=== PATIENT | male | born 2000 | race Caucasian/White ===

== ENCOUNTER 2020-03-04 15:15 | Outpatient (RCR) | payer BC, SELFPAY ==
[2020-02-26 13:16] VITALS: BP 143/95; PULSE 105; RESP 16; TEMP 36.1; BMI 37.1
--- NOTE | 2020-02-26 16:09 | PCM.WC.HP ---
(1) Traumatic open wound of left lower leg with delayed healing Status: Acute Current Visit: Yes Code(s): S81.802D - Unspecified open wound, left lower leg, subsequent encounter (2) Obesity Status: Acute Current Visit: Yes Code(s): E66.9 - Obesity, unspecified (3) Bipolar disorder Status: Acute Current Visit: Yes Code(s): F31.9 - Bipolar disorder, unspecified History of Present Illness Date of Service: 02/26/20 Chief Complaint: Wound to left lower extremity x4 weeks History of Wound: This is a 19 year old white male who presents to the wound healing center today for a traumatic wound to his left lower extremity. He has a past medical history as listed above. On 01/27/2020 the patient had a traumatic injury to his left hess where he hit it on a industrial dump bucket. He went to the emergency department on the and an x-ray was done at [facility] and was said to be negative. He was placed on both Keflex and Cipro. He states that he finished the ciprofloxacin yesterday. For wound care he has been utilizing iodine and gauze change it daily. He states that the site is not healing. He denies any significant drainage. He denies any significant pain. He denies any other acute concerns. All other systems reviewed and negative with exception of those listed above. Past Medical History Allergies/Adverse Reactions: Allergies No Known Allergies Allergy (Verified 02/26/20 14:06) Home Medications: Ambulatory Orders Medication Instructions Recorded Carbamazepine [Tegretol] 200 mg PO DAILY 02/26/20 Smoking Status: Current every day smoker Tobacco Use: Cigarettes - 1 pack/day Review of Systems Constitutional: Denies: Chills, Fever, Weight Change Eyes: Denies: Pain, Vision Change HEENT: Denies: Difficulty Hearing, Difficulty Swallowing, Sinus Congestion Cardiovascular: Denies: Chest Pain, Palpitations Respiratory: Denies: Cough, Shortness of Breath Gastrointestinal: Denies: Diarrhea, Nausea, Vomiting Genitourinary: Denies: Dysuria, Hematuria Skin: Reports: Wounds Endocrine: Denies: Heat/ Cold Intolerance, Polydipsia, Polyuria Hematologic/ Lymphatic: Denies: Easy Bruising, Easy Bleeding - Physical Exam Vital Signs Temp Pulse Resp BP 97 F L 105 H 16 143/95 H 02/26/20 13:16 02/26/20 13:16 02/26/20 13:16 02/26/20 13:16 General: Alert, Oriented x3, Cooperative, No apparent distress HEENT: Atraumatic Oral: Moist Mucosa Lungs: Clear to auscultation, Normal air movement Cardiovascular: Regular rate, Regular Rhythm, Normal S1, Normal S2 Abdomen: Soft, Non Tender Extremities: No clubbing, No cyanosis, Edema - Generalized bilateral lower extremity edema, Peripheral Pulses Normal Skin: Ulcer/ Wound - see nursing documentation, large amount of slough present, depth greater than 3 cm Wound Measurements and Assessment WC - Nurse 1 - General Ulcer Measurement Start: 02/26/20 13:12 Freq: Status: Active Protocol: Activity Type Activity Date Activity User E-Sign Co-Sign Detail Recorded Client Recorded Date Recorded By Document 02/26/20 13:16 [facility] [id number] 02/26/20 13:34 [facility] 02/26/20 13:16 Wound Center Nurse 1 [Ulcer Assessment] #1- L HESS (POST TRAUMA) -Combined with other wound No -Current Size (cm) - Length 1.4 -Current Size (cm) - Width 1.4 -Current Size (cm) - Depth 0.8 -Total Square Cm 1.96 -Date of Last Picture (Recall this 02/26/20 field) -Photo Taken Yes -Epithelialization None Present -Tunneling No -Undermining/Tunneling No -Circular Undermining No -Exudate Amt Small -Exudate Type Serosanguineous -Wound Margin Distinct, Outline Attached -Granulation Amt Medium (34-66%) -Granulation Quality Red -Slough/Fibrin Yes -Necrosis Amt Medium (34-66%) -Necrotic Tissue Type Adherent Slough -Texture ([place]-wound Skin Appearance) Assessed -Moisture ([place]-wound Skin Appearance Assessed ) -Color ([place]-wound Skin Appearance) Assessed, Erythema -Temperature ([place]-wound Skin No Abnormality Appearance) (Pt Warm) -Tenderness on Palpation ([place]-wound No Skin Appearance) -Ulcer Cleansing Rinsed/ Irrigated with Saline -Foul Odor after Cleansing No -Anesthetic Used 4% Lidocaine Solution [Edema Assessment] -Lower Limb Edema Present Yes -Right Calf (cm) 59.1 -Right Ankle (cm) 31.5 -Point of Measurement (cm from the 58.4 distal point) -Point of measurement (cm from the 32 medial instep) WC - Nurse 2 - General Ulcer CM Notes Start: 02/26/20 13:12 Freq: Status: Active Protocol: Activity Type Activity Date Activity User E-Sign Co-Sign Detail Recorded Client Recorded Date Recorded By Document 02/26/20 13:50 MW [id number] 02/26/20 14:07 MW 02/26/20 13:50 Wound Center Nurse 2 [Procedure/Treatment] #1- L HESS (POST TRAUMA) -Time 13:51 -Correct Patient Yes -Correct Side, Site, Position Yes -Correct Procedure Yes -Procedure Performed Yes -Type of Procedure Incision & Drainage -Clinical Debridement Muscle / Fascia -Tissue Removed Muscle -Post Debridement (cm) - Length 1.8 -Post Debridement (cm) - Width 1.6 -Post Debridement (cm) - Depth 3.2 -Total Square (Post) (cm) 2.88 -Area of Debridement (cm) - Length 1.8 -Area of Debridement (cm) - Width 1.6 -Total Square (Area) (cm) 2.88 -Tunneling No -Undermining/Tunneling No -Circular Undermining No -Wound/Ulcer Outcome Not Healed -Ulcer Cleansing Rinsed/ Irrigated with Saline -Foul Odor after Cleansing No -Bioengineered Tissue No -Bleeding Controlled with Pressure -Offloading No -Debridement - Muscle / Fascia, 1st Yes 20sq cm [See Physician Procedure note for Specifics] Pain Scale: 0-10 Numeric [Pain] -Is Patient Pain Free? Yes - Nurse 3 - General Ulcer D/C NN Start: 02/26/20 13:12 Freq: Status: Active Protocol: Activity Type Activity Date Activity User E-Sign Co-Sign Detail Recorded Client Recorded Date Recorded By Document 02/26/20 14:11 [facility] [id number] 02/26/20 14:12 [facility] 02/26/20 14:11 Wound Care Nurse 3 [Wound Dressing] #1- L HESS (POST TRAUMA) -Ulcer Cleansing Rinsed/ Irrigated with Saline -Foul Odor after Cleansing No -Primary Dressing Applied Aquacel AG Ribbon -Primary Dressing Covered/Secured Dry Gauze, with Secured with Tape -Aquacel AG Ribbon 3 [Compression Applied] Left -Tubular Bandage Double Layer -Size of Tubigrip Used Size F -Size F ($) 1 [Post Procedure Tolerated] -Treatment Response Procedure Tolerated Well Pain Scale: 0-10 Numeric [Pain] -Is Patient Pain Free? Yes WC - Visit Discharge [Visit Discharge Information] -Discharge Condition Stable -Ambulatory Status Ambulatory -Transportation Private Auto -Accompanied by mom Neurological: Neuro grossly intact Psych/Mental Status: Normal Affect, Appropriate, Alert and oriented to time, place, person, mood and affect Debridement Note Post-Debridement Measurements/Treatment WC - Nurse 2 - General Ulcer CM Notes Start: 02/26/20 13:12 Freq: Status: Active Protocol: Activity Type Activity Date Activity User E-Sign Co-Sign Detail Recorded Client Recorded Date Recorded By Document 02/26/20 13:50 MW [id number] 02/26/20 14:07 MW 02/26/20 13:50 Wound Center Nurse 2 #1- L HESS (POST TRAUMA) -Time 13:51 -Correct Patient Yes -Correct Side, Site, Position Yes -Correct Procedure Yes -Procedure Performed Yes -Type of Procedure Incision & Drainage -Clinical Debridement Muscle / Fascia -Tissue Removed Muscle -Post Debridement (cm) - Length 1.8 -Post Debridement (cm) - Width 1.6 -Post Debridement (cm) - Depth 3.2 -Total Square (Post) (cm) 2.88 -Area of Debridement (cm) - Length 1.8 -Area of Debridement (cm) - Width 1.6 -Total Square (Area) (cm) 2.88 -Tunneling No -Undermining/Tunneling No -Circular Undermining No -Wound/Ulcer Outcome Not Healed -Ulcer Cleansing Rinsed/ Irrigated with Saline -Foul Odor after Cleansing No -Bioengineered Tissue No -Bleeding Controlled with Pressure -Offloading No -Debridement - Muscle / Fascia, 1st Yes 20sq cm Pain Scale: 0-10 Numeric Is Patient Pain Free? Yes - Nurse 3 - General Ulcer D/C NN Start: 02/26/20 13:12 Freq: Status: Active Protocol: Activity Type Activity Date Activity User E-Sign Co-Sign Detail Recorded Client Recorded Date Recorded By Document 02/26/20 14:11 [facility] [id number] 02/26/20 14:12 [facility] 02/26/20 14:11 Wound Care Nurse 3 #1- L HESS (POST TRAUMA) -Ulcer Cleansing Rinsed/ Irrigated with Saline -Foul Odor after Cleansing No -Primary Dressing Applied Aquacel AG Ribbon -Primary Dressing Covered/Secured with Dry Gauze, Secured with Tape -Aquacel AG Ribbon 3 Left -Tubular Bandage Double Layer -Size of Tubigrip Used Size F -Size F ($) 1 Treatment Response Procedure Tolerated Well Pain Scale: 0-10 Numeric Is Patient Pain Free? Yes WC - Visit Discharge Discharge Condition Stable Ambulatory Status Ambulatory Transportation Private Auto Accompanied by mom Wound debrided: Wound to left lower extremity Laterality: Left Type of Debridement: Excisional debridement Anesthesia Used: 5% Lidocaine Gel Depth: in the subcutaneous layer, to muscle Percentage of wound debrided: 100 Instrument Used: 5mm curette Tissue Removed: slough and devitalized tissue Severity: Fat Layer Exposed Amount of bleeding with debridement: Mild Bleeding Controlled with: Pressure Patient tolerated procedure well Assessment/Plan Active Problems Traumatic open wound of left lower leg with delayed healing (Acute) Obesity (Acute) Bipolar disorder (Acute) Assessment: see above diagnoses Plan: The patient was seen and examined at the wound center today and was updated on the plan of care. A subcutaneous/muscular debridement was performed today. The patient tolerated the procedure well. The patients wound care will consist of:packing with silvercell rope daily and cover with gauze, due to depth will apply for snap vac. Wound cultures were collected. Baseline bloodwork ordered held, will request [place] records. Vascular studies held. Patient educated on the importance of diet on wound healing and instructed to increase protein and vitamin C intake. Patient verbalized understanding. Given the delayed wound healing greater than 4 weeks now, will apply for an skin substitute as well. Patient will follow up at wound healing center in one week or sooner if needed. This note was generated with [employer] dictation software. It may contain incorrect words, spelling, and punctuation that were not noted in checking the note before signing. Office Visits / Consults: [id number] OV L4 New [id number]: [id number] Charissa musc/fascia 20 sq cm/<
[2020-03-04 15:18] VITALS: BP 142/76; PULSE 100; RESP 16; TEMP 36.9; BMI 37.1
--- NOTE | 2020-03-04 16:40 | RAD_ITS ---
STUDY: X-RAY - LEFT TIBIA AND FIBULA REASON FOR EXAM: Male, 19 years old. Nonhealing ulcer of the left hess. TECHNIQUE: 2 view(s) of the tibia and fibula were obtained. COMPARISON: None. FINDINGS: Normal visualized tibia. Normal visualized fibula. Edema of the soft tissue with skin defect anterior to the hess bone. No radiopaque foreign body. RAD/Tibia & Fibula 2 Views IMPRESSION: No plain film evidence of osteomyelitis or acute osseous abnormality of the left tibia and fibula. Electronically Signed: Jian Frost MD at 8:57 EDT , Service support ,
[2020-03-04 17:12] LABS: Hemoglobin A1c 5.1 % (3.8-5.6)
[2020-03-04 17:21] LABS: Absolute Lymphocyte Count 1.95 X10^3/uL (0.83-4.51); Basophil# 0.03 X10^3/uL; Basophil% 0.3 % (0-1); Eosinophil# 0.25 X10^3/uL; Eosinophils% 2.2 % (0-5); Hematocrit 43.9 % (40-54); Hemoglobin 14.3 g/dL (13.0-16.5); Lymphocyte # 1.95 X10^3/ul (4.0); Lymphocyte % 17.5 % (19-41); Mean Corp Hgb Conc 32.6 g/dL (32-36); Mean Corpuscular Hgb 28.9 pg (27.0-32.0); Mean Corpuscular Volume 88.9 fL (80-94); Mean Platelet Vol. 9.6 fl (6.2-12.0); Monocyte# 0.95 X10^3/uL; Monocyte% 8.5 % (0-10); NRBC Flagged by Analyzer 0 % (0-5); Neutrophil # 7.96 X10^3/uL (2.7-7.7); Neutrophil % 71.2 % (47-70); Platelet Count 343 K/mm3 (150-450); RBC Distribution Width CV 12.6 % (11.6-14.6); RBC Distribution Width SD 41.3 fl (35.1-43.9); Red Blood Count 4.94 M/mm3 (4.6-6.2); White Blood Count 11.2 K/mm3 (4.4-11.0)
[2020-03-04 17:31] LABS: Erythrocyte Sedimentation Rate 49 mm/hr (0-15)
[2020-03-04 17:37] LABS: ALB/GLOB Ratio 0.9 RATIO (0.9-2.4); AST(SGOT) 15 U/L (15-37); Alanine Aminotransfer ALT/SGPT 43 U/L (16-61); Albumin, Serum 3.5 g/dL (3.2-5.0); Alkaline Phosphatase 99 U/L (45-117); Anion Gap 6 (5-15); BUN 12 mg/dL (7-18); Calcium,Total 8.1 mg/dL (8.5-10.1); Chloride 109 mmol/L (98-107); EST Glomerular Filtration Rate 182 mL/min (>60); Est Glom Filt Rate - Afr Amer 221 mL/min (>60); Estimated Creatinine Clearance 241.11 ml/min; Globulin 3.8 g/dL (2.2-4.2); Glucose 85 mg/dL (74-106); Potassium 4.4 mmol/L (3.5-5.1); Prealbumin 15.7 mg/dL (20.0-40.0); Protein, Total 7.3 g/dL (6.4-8.2); Sodium Level 138 mmol/L (136-145)
--- NOTE | 2020-03-07 15:42 | PCM.WC.PN ---
(1) Traumatic open wound of left lower leg with delayed healing Status: Acute Code(s): S81.802D - Unspecified open wound, left lower leg, subsequent encounter (2) Obesity Status: Acute Code(s): E66.9 - Obesity, unspecified (3) Bipolar disorder Status: Chronic Code(s): F31.9 - Bipolar disorder, unspecified Type of Wound Date of Service: 03/04/20 Chief Complaint: Wound to left lower extremity x4 weeks History of Wound: This is a 19 year old white male who presents to the wound healing center today for a traumatic wound to his left lower extremity. He has a past medical history as listed above. On 01/27/2020 the patient had a traumatic injury to his left hess where he hit it on a industrial dump bucket. He went to the emergency department on the and an x-ray was done at [facility] and was said to be negative. He was placed on both Keflex and Cipro. He states that he finished the ciprofloxacin yesterday. For wound care he has been utilizing iodine and gauze change it daily. He states that the site is not healing. He denies any significant drainage. He denies any significant pain. He denies any other acute concerns. All other systems reviewed and negative with exception of those listed above. Progress of Wound: 03/04/2020?patient reports an increase in pain to the wound, most recent cultures were reviewed and negative, he does also note increased surrounding warmth and redness. Given the concern for cellulitis and depth of 6.5 cm will check a x-ray and also treat empirically with Augmentin. Discussed with patient and mother that if any symptoms worsen or he develops any systemic signs of infection such as fever, chills,worsening pain, or body aches that he should go to the emergency department immediately. - Physical Exam Vital Signs Temp Pulse Resp BP 98.4 F 100 16 142/76 H 03/04/20 15:18 03/04/20 15:18 03/04/20 15:18 03/04/20 15:18 General: Alert, Oriented x3, Cooperative, No apparent distress HEENT: Atraumatic Oral: Moist Mucosa Lungs: Clear to auscultation, Normal air movement Cardiovascular: Regular rate Abdomen: Soft, Non Tender Extremities: No clubbing, No cyanosis, Edema - generalized bilateral lower extremity edema, Peripheral Pulses Normal Skin: Ulcer/ Wound - See nursing documentation, site now tunnel at 1:00 by 6.5 cm, large surrounding area of cellulitis present with warmth and erythema. Wound Measurements and Assessment WC - Nurse 1 - General Ulcer Measurement Start: 02/26/20 13:12 Freq: Status: Active Protocol: Activity Type Activity Date Activity User E-Sign Co-Sign Detail Recorded Client Recorded Date Recorded By Document 03/04/20 15:18 BM [id number] 03/04/20 15:27 BMF 03/04/20 15:18 Wound Center Nurse 1 [Ulcer Assessment] #1- L HESS (POST TRAUMA) -Combined with other wound No -Current Size (cm) - Length 1.7 -Current Size (cm) - Width 1.3 -Current Size (cm) - Depth 2.7 -Total Square Cm 2.21 -Photo Taken No -Tunneling Yes -Tunneling Position (O'clock) 11 -Tunneling Distance (cm) 2.5 -Undermining/Tunneling No -Circular Undermining No -Exudate Amt Large -Exudate Type Serosanguineous -Wound Margin Distinct, Outline Attached -Granulation Amt Medium (34-66%) -Granulation Quality Red -Slough/Fibrin Yes -Necrosis Amt Large (67-100%) -Necrotic Tissue Type Adherent Slough -Texture ([place]-wound Skin Appearance) Assessed -Moisture ([place]-wound Skin Appearance Assessed ) -Color ([place]-wound Skin Appearance) Assessed, Erythema -Temperature ([place]-wound Skin No Abnormality Appearance) (Pt Warm) -Tenderness on Palpation ([place]-wound Yes Skin Appearance) -Ulcer Cleansing soapy water -Foul Odor after Cleansing No -Anesthetic Used 5% Lidocaine Gel [Edema Assessment] -Lower Limb Edema Present Yes -Left Calf (cm) 58.5 -Left Ankle (cm) 31 WC - Nurse 2 - General Ulcer CM Notes Start: 02/26/20 13:12 Freq: Status: Active Protocol: Activity Type Activity Date Activity User E-Sign Co-Sign Detail Recorded Client Recorded Date Recorded By Document 03/04/20 16:14 MW [id number] 03/04/20 16:18 MW 03/04/20 16:14 Wound Center Nurse 2 [Procedure/Treatment] #1- L HESS (POST TRAUMA) -Time 16:15 -Correct Patient Yes -Correct Side, Site, Position Yes -Correct Procedure Yes -Procedure Performed Yes -Type of Procedure Debridement -Clinical Debridement Subcutaneous -Tissue Removed Subcutaneous -Post Debridement (cm) - Length 2.0 -Post Debridement (cm) - Width 1.8 -Post Debridement (cm) - Depth 3.5 -Total Square (Post) (cm) 3.60 -Area of Debridement (cm) - Length 2.0 -Area of Debridement (cm) - Width 1.8 -Total Square (Area) (cm) 3.60 -Tunneling Yes -Tunneling Position (O'clock) 1 -Tunneling Distance (cm) 6.5 -Undermining/Tunneling No -Circular Undermining No -Wound/Ulcer Outcome Not Healed -Ulcer Cleansing Rinsed/ Irrigated with Saline -Foul Odor after Cleansing No -Bioengineered Tissue No -Bleeding Controlled with Pressure -Offloading No -Debridement - Subq, 1st 20sq cm Yes [See Physician Procedure note for Specifics] Pain Scale: 0-10 Numeric [Pain] -Is Patient Pain Free? Yes WC - Nurse 3 - General Ulcer D/C NN Start: 02/26/20 13:12 Freq: Status: Active Protocol: Activity Type Activity Date Activity User E-Sign Co-Sign Detail Recorded Client Recorded Date Recorded By Document 03/04/20 16:20 MW [id number] 03/04/20 16:24 MW 03/04/20 16:20 Wound Care Nurse 3 [Wound Dressing] #1- L HESS (POST TRAUMA) -Ulcer Cleansing Rinsed/ Irrigated with Saline -Foul Odor after Cleansing No -Negative Pressure Wound Therapy N/A -Primary Dressing Applied Aquacel AG 4x4 -Primary Dressing Covered/Secured Dry Gauze & with Roll Gauze, Secured with Tape -Aquacel AG 4x4 1 [Compression Applied] Left -Lotion applied to leg before No compression wrap -Tubular Bandage Double Layer -Size of Tubigrip Used Size F -Size F ($) 2 -Stockings Yes [Post Procedure Tolerated] -Treatment Response Procedure Tolerated Well Pain Scale: 0-10 Numeric [Pain] -Is Patient Pain Free? Yes Teaching: Wound Center [Wound Center Education] (Items with an * have Printed Materials Available- Please identify what is given to patient under the Teaching materials given to patient and caregiver Section. Dressing Your Wound -Person Taught Patient -Teaching Method Discussion -Response to teaching Verbalize understanding WC - Visit Discharge [Visit Discharge Information] -Discharge Condition Stable -Ambulatory Status Ambulatory -Transportation Private Auto -Accompanied by mom -Medication Reconcilliation completed No & provided to patient/care provider -Clinical Summary of Care Provided Yes Neurological: Neuro grossly intact Psych/Mental Status: Normal Affect, Appropriate, Alert and oriented to time, place, person, mood and affect Debridement Note Post-Debridement Measurements/Treatment - Nurse 2 - General Ulcer CM Notes Start: 02/26/20 13:12 Freq: Status: Active Protocol: Activity Type Activity Date Activity User E-Sign Co-Sign Detail Recorded Client Recorded Date Recorded By Document 02/26/20 13:50 MW [id number] 02/26/20 14:07 MW Document 03/04/20 16:14 MW [id number] 03/04/20 16:18 MW 02/26/20 03/04/20 13:50 16:14 Wound Center Nurse 2 #1- L JAMES (POST TRAUMA) -Time 13:51 16:15 -Correct Patient Yes Yes -Correct Side, Site, Position Yes Yes -Correct Procedure Yes Yes -Procedure Performed Yes Yes -Type of Procedure Incision & Debridement Drainage -Clinical Debridement Muscle / Fascia Subcutaneous -Tissue Removed Muscle Subcutaneous -Post Debridement (cm) - Length 1.8 2.0 -Post Debridement (cm) - Width 1.6 1.8 -Post Debridement (cm) - Depth 3.2 3.5 -Total Square (Post) (cm) 2.88 3.60 -Area of Debridement (cm) - Length 1.8 2.0 -Area of Debridement (cm) - Width 1.6 1.8 -Total Square (Area) (cm) 2.88 3.60 -Tunneling No Yes -Tunneling Position (O'clock) 1 -Tunneling Distance (cm) 6.5 -Undermining/Tunneling No No -Circular Undermining No No -Wound/Ulcer Outcome Not Healed Not Healed -Ulcer Cleansing Rinsed/ Rinsed/ Irrigated with Irrigated with Saline Saline -Foul Odor after Cleansing No No -Bioengineered Tissue No No -Bleeding Controlled with Pressure Pressure -Offloading No No -Debridement - Subq, 1st 20sq cm Yes -Debridement - Muscle / Fascia, 1st Yes 20sq cm Pain Scale: 0-10 Numeric Is Patient Pain Free? Yes Yes - Nurse 3 - General Ulcer D/C NN Start: 02/26/20 13:12 Freq: Status: Active Protocol: Activity Type Activity Date Activity User E-Sign Co-Sign Detail Recorded Client Recorded Date Recorded By Document 02/26/20 14:11 [facility] [id number] 02/26/20 14:12 [facility] Document 03/04/20 16:20 MW [id number] 03/04/20 16:24 MW 02/26/20 03/04/20 14:11 16:20 Wound Care Nurse 3 #1- L HESS (POST TRAUMA) -Ulcer Cleansing Rinsed/ Rinsed/ Irrigated with Irrigated with Saline Saline -Foul Odor after Cleansing No No -Negative Pressure Wound Therapy N/A -Primary Dressing Applied Aquacel AG Ribbon -Primary Dressing Applied Aquacel AG 4x4 -Primary Dressing Covered/Secured with Dry Gauze, Dry Gauze & Secured with Roll Gauze, Tape Secured with Tape -Aquacel AG 4x4 1 -Aquacel AG Ribbon 3 Left -Lotion applied to leg before No compression wrap -Tubular Bandage Double Layer Double Layer -Size of Tubigrip Used Size F Size F -Size F ($) 1 2 -Stockings Yes Treatment Response Procedure Procedure Tolerated Well Tolerated Well Pain Scale: 0-10 Numeric Is Patient Pain Free? Yes Yes Teaching: Wound Center Dressing Your Wound -Person Taught Patient -Teaching Method Discussion -Response to teaching Verbalize understanding WC - Visit Discharge Discharge Condition Stable Stable Ambulatory Status Ambulatory Ambulatory Transportation Private Auto Private Auto Accompanied by mom mom Medication Reconcilliation completed & No provided to patient/care provider Clinical Summary of Care Provided Yes Wound debrided: Wound to left lower extremity Laterality: Left Type of Debridement: Excisional debridement Anesthesia Used: 5% Lidocaine Gel Depth: Down to and including healthy tissue, in the subcutaneous layer Percentage of wound debrided: 100 Instrument Used: 5mm curette Tissue Removed: slough and devitalized tissue Severity: Fat Layer Exposed Amount of bleeding with debridement: Mild Bleeding Controlled with: Pressure Patient tolerated procedure well Assessment/Plan Clinical Impression(s) from Imaging Studies Tibia/Fibula X-Ray 03/04/20 16:40 IMPRESSION: No plain film evidence of osteomyelitis or acute osseous abnormality of the left tibia and fibula. Electronically Signed: Jian Frost MD at 8:57 EDT , Service support , Assessment: see above diagnoses Plan: The patient was seen and examined at the wound center today and was updated on the plan of care. A subcutaneous/muscular debridement was performed today. The patient tolerated the procedure well. The patients wound care will consist of:packing with silvercell rope daily and cover with gauze, due to depth will apply for snap vac. Wound cultures were collected again today. Baseline bloodwork and xray ordered, will request [facility] records. Given the concern for cellulitis, will treat patient empirically with Augmentin. Vascular studies held. Patient educated on the importance of diet on wound healing and instructed to increase protein and vitamin C intake. Patient verbalized understanding. Given the delayed wound healing greater than 4 weeks now, will apply for an skin substitute as well. Patient will follow up at wound healing center in one week or sooner if needed. This note was generated with [email or web address] dictation software. It may contain incorrect words, spelling, and punctuation that were not noted in checking the note before signing. [id number]: [id number] Charissa musc/fascia 20 sq cm/<
== END 2020-03-08 23:59 ==
LOC: WC 15:15
PROVIDERS: PCP Family Medicine; Visit Provider Nurse Practitioner Family
DX: S81.802A Unspecified open wound, left lower leg, initial encounter (principal); W22.8XXA Striking against or struck by other objects, initial encounter; F31.9 Bipolar disorder, unspecified; E66.9 Obesity, unspecified; F17.210 Nicotine dependence, cigarettes, uncomplicated
CPT/HCPCS: 11042; 11043; 36415; 73590; 80053; 83036; 84134; 85025; 85652; 86140; 87070; 87075; 87077; 87186; 87205; 99203; G0463

== ENCOUNTER 2020-03-05 07:59 | Emergency (ER) | payer BC, SELFPAY ==
[2020-03-04 15:18] VITALS: BMI 37.1
[2020-03-05 08:00] VITALS: BP 152/103; PULSE 112; RESP 22; TEMP 36.8; O2SAT 99; BMI 51.8
[2020-03-05 08:09] VITALS: BP 152/103; PULSE 112; RESP 22; TEMP 36.8; O2SAT 99
--- NOTE | 2020-03-05 08:19 | ED.DCSUM_ITS ---
History of Present Illness Chief Complaint: Wound Informant: Patient Onset: Weeks Current Severity: Moderate Maximum Severity: Moderate Narrative: Patient presents with chronic wound to the left lower leg for the past 6 weeks. He was initially hit with a bucket on a skidder loader. He was seen at the hospital in [place]. X-rays were reportedly negative and he was placed on Cipro and Keflex. Wound has not healed and patient has been following with the wound center. He was seen in the where a Gram stain from the wound was negative. He was seen again yesterday and repeat Gram stain is currently pending. At th at time his white count was 11.2, CRP 78, sed rate 49. Patient was placed on Augmentin. He was advised if pain was worse or the infection looked worse he should go to the emergency room. He states he has worsened pain today so came in for evaluation. He denies fever or chills. - Past Medical History (1) Bipolar disorder Status: Chronic (2) Traumatic open wound of left lower leg with delayed healing Status: Acute Past Medical History - Allergies and Home Meds Allergies/Adverse Reactions: Allergies No Known Allergies Allergy (Verified 02/26/20 14:06) Primary Care Physician: Will Jaimes MD [Primary Care Provider] - Prior records reviewed: Yes Smoking Status: Current every day smoker Review of Systems General: Denies: Chills, Fever Eyes: Denies: Visual changes - bilaterally ENT: Denies: Bilateral ear pain Cardiovascular: Denies: Chest pain Respiratory: Denies: Dyspnea, Cough Gastrointestinal: Denies: Abdominal pain, Nausea, Vomiting, Diarrhea Musculoskeletal: Reports: Extremity Pain Skin: Reports: Wounds Neurological: Denies: Headache Hematologic: Denies: Easy bruising, Easy bleeding Allergy: Denies: Uticaria Physical Exam Vital Signs/Narrative: Vital Signs Temp Pulse Resp BP Pulse Ox 03/05/20 08:09 98.3 F 112 H 22 H 152/103 H 99 03/05/20 08:00 98.3 F 112 H 22 H 152/103 H 99 Inital Vital Signs reviewed: Yes General: Well nourished, Well developed Head: Normocephalic ENT: Moist mucous membranes Neck: Supple Cardiovascular: Regular rate, Regular rhythm Respiratory: No distress, CTA bilaterally Abdomen: Soft, Nontender Extremities: - - 1.8 cm diameter wound to the anterior left hess. Mild surrounding cellulitis. Packing is in place. Neurological: Alert, Oriented x3 Psychological: Normal affect Diagnostic/Tx/Re-eval Laboratory Results 03/05/20 03/05/20 03/05/20 08:30 08:30 08:30 WBC 12.6 H RBC 5.08 Hgb 14.8 Hct 45.2 MCV 89.0 MCH 29.1 MCHC 32.7 RDW Std Deviation 41.3 RDW Coeff of Nehal 12.6 Plt Count 316 MPV 9.5 Immature Gran % (Auto) 0.200 Neut % (Auto) 82.3 H Lymph % (Auto) 10.2 L [place] % (Auto) 5.9 Eos % (Auto) 1.2 Baso % (Auto) 0.2 Absolute Neuts (auto) 10.3 H Absolute Lymphs (auto) 1.28 Nucleated RBC % 0 Sodium 138 Potassium 4.3 Chloride 105 Carbon Dioxide 25.0 Anion Gap 8 BUN 10 Creatinine 0.74 Estim Creat Clear Calc 174.77 Est GFR (MDRD) Af Amer 172 Est GFR (MDRD) Non-Af 142 BUN/Creatinine Ratio 13.4 Glucose 104 Lactic Acid 1.7 Calcium 8.5 - Medical Decision Making Blood work today was reviewed. This was compared to lab work obtained yesterday. White count is essentially the same. Area of erythema on the leg is actually smaller than what was outlined yesterday. He is to continue his Augmentin. The wound culture obtained yesterday should be back with a preliminary report this afternoon. I did advise him that he may receive a phone call to adjust his antibiotics depending on that Gram stain. Patient was advis ed if he develops fever or chills, erythema outside the outlined area, or drainage from the wound he is to return for repeat evaluation. ED Disposition - Plan for ED Patient: Disposition: Home or Assisted Living Diagnosis: Leg wound, left Instructions: ED Wound Puncture General Referrals: Will Jaimes MD [Primary Care Provider] - Additional Instructions: Your wound culture should return in the next day or so. You may receive a phone call to adjust your antibiotics. Return for fever, chills, wound drainage, or redness outside the outlined area.
[2020-03-05 08:41] LABS: Absolute Lymphocyte Count 1.28 X10^3/uL (0.83-4.51); Absolute Neutrophil Count 10.3 X10^3/uL (2.0-7.7); Basophil# 0.03 X10^3/uL; Basophil% 0.2 % (0-1); Eosinophil# 0.15 X10^3/uL; Eosinophils% 1.2 % (0-5); Hematocrit 45.2 % (40-54); Hemoglobin 14.8 g/dL (13.0-16.5); Lymphocyte # 1.28 X10^3/ul (4.0); Lymphocyte % 10.2 % (19-41); Mean Corp Hgb Conc 32.7 g/dL (32-36); Mean Corpuscular Hgb 29.1 pg (27.0-32.0); Mean Platelet Vol. 9.5 fl (6.2-12.0); Monocyte# 0.74 X10^3/uL; Monocyte% 5.9 % (0-10); NRBC Flagged by Analyzer 0 % (0-5); Neutrophil # 10.32 X10^3/uL (2.7-7.7); Neutrophil % 82.3 % (47-70); Platelet Count 316 K/mm3 (150-450); RBC Distribution Width CV 12.6 % (11.6-14.6); RBC Distribution Width SD 41.3 fl (35.1-43.9); Red Blood Count 5.08 M/mm3 (4.6-6.2); White Blood Count 12.6 K/mm3 (4.4-11.0)
[2020-03-05 08:57] LABS: Anion Gap 8 (5-15); BUN 10 mg/dL (7-18); BUN/Creat Ratio 13.4 RATIO (10-20); Calcium,Total 8.5 mg/dL (8.5-10.1); Chloride 105 mmol/L (98-107); Creatinine, Serum 0.74 mg/dL (0.70-1.30); EST Glomerular Filtration Rate 142 mL/min (>60); Est Glom Filt Rate - Afr Amer 172 mL/min (>60); Estimated Creatinine Clearance 174.77 ml/min; Glucose 104 mg/dL (74-106); Potassium 4.3 mmol/L (3.5-5.1); Sodium Level 138 mmol/L (136-145)
[2020-03-05] MEDS: 0.9% Normal Saline 1,000 ML 150 ML IV (09:05)
[2020-03-05 09:09] LABS: Lactic Acid 1.7 mmol/L (0.4-1.9)
[2020-03-05 09:47] VITALS: BP 134/78; PULSE 81; RESP 16; O2SAT 99
== END 2020-03-05 09:54 | disposition home or self-care (01) ==
PROVIDERS: Emergency Provider Emergency Medicine; PCP Family Medicine
DX: S81.802A Unspecified open wound, left lower leg, initial encounter (principal); L03.116 Cellulitis of left lower limb; W22.8XXA Striking against or struck by other objects, initial encounter; Y93.9 Activity, unspecified; Y92.9 Unspecified place or not applicable; Y99.9 Unspecified external cause status; F17.200 Nicotine dependence, unspecified, uncomplicated; F31.9 Bipolar disorder, unspecified; Z79.899 Other long term (current) drug therapy
CPT/HCPCS: 80048; 83605; 85025; 87040; 96360; 99283; J7030; A4216

== ENCOUNTER 2020-03-09 15:14 | Emergency (ER) | payer BC, SELFPAY ==
[2020-03-09 15:15] VITALS: BP 145/95; PULSE 105; RESP 18; TEMP 36.9; BMI 46.8
--- NOTE | 2020-03-09 16:03 | ED.VIS.GEN ---
History of Present Illness Chief Complaint: Wound Informant: Patient Narrative: Patient is a 19-year-old male who presents to the emergency department for wound to the left hess area. He has had this chronically over the past 6 weeks. Has been followed with wound management. He has been on multiple different antibiotics. He is currently on clindamycin for the past 4 days. His culture did grow out MRSA. He was told to come to emerge department if the redness extended. He states that over the past few days it has been progressively getting worse. Last time he saw wound management was last . He denies any systemic symptoms including any fever/chills or nausea/vomiting. There is a hole present which he has been packing every night. Past Medical History - Allergies and Home Meds Allergies/Adverse Reactions: Allergies No Known Allergies Allergy (Verified 02/26/20 14:06) Primary Care Physician: Will Jaimes MD [Primary Care Provider] - Prior records reviewed: Yes Past Medical History: - - Bipolar Smoking Status: Current every day smoker Review of Systems All systems negative except as indicated General: Denies: Chills, Fever, Sweats Eyes: Denies: Visual changes - bilaterally, Diplopia ENT: Denies: Rhinorrhea, Sore throat Cardiovascular: Denies: Chest pain, Palpitations Respiratory: Denies: Dyspnea, Cough, Dyspnea on exertion Gastrointestinal: Denies: Abdominal pain, Nausea, Vomiting, Diarrhea Genitourinary: Denies: Dysuria, Hematuria, Frequency Musculoskeletal: Denies: Back pain, Extremity Pain Skin: Reports: Wounds. Denies: Rash Neurological: Denies: Headache, Weakness, Numbness Physical Exam Vital Signs/Narrative: Vital Signs Temp Pulse Resp BP 03/09/20 15:15 98.5 F 105 H 18 145/95 H Inital Vital Signs reviewed: Yes General: Well nourished, Obese, No Acute Distress Head: Normocephalic, Atraumatic Eyes: Perrl, EOMI ENT: Moist mucous membranes, No rhinorrhea Neck: Supple, Nontender Cardiovascular: Regular rate, Regular rhythm, No murmurs Respiratory: No distress, CTA bilaterally, Chest nontender Abdomen: Soft, Nontender, Nondistended, Normal bowel sounds Back: Nontender, Normal Inspection Extremities: Nontender, No edema Skin: Normal color, No rash, - - Wound to left hess. There is erythema surrounding the area. He is very tender to touch. Warm to palpation. There is some clear/serosanguineous discharge present. Neurological: Alert, Oriented x3, Cranial nerves II-XII grossly intact, Normal Strength, Normal Sensation Psychological: Normal affect, Normal Mood Diagnostic/Tx/Re-eval - Medical Decision Making Patient presents to the ED for worsening chronic wound of his left hess. He states that the erythema has been extending around the wound more recently. Upon arrival to the ED is afebrile. he is mildly tachycardic. Denies any systemic symptoms. Will check basic lab work. He has been on clindamycin. I did review his previous microbiology cultures and grew out MRSA. This is supposed to be susceptible to clindamycin. Patient's lab work is actually improving. White blood cell count within normal limits. His ESR and CRP are trending downward but still elevated. I did call and speak with the wound nurse practitioner. They agree with the plan as an outpatient on the [facility] as he is not completely got the past 3 days as he only took 1 dose Sunday, yesterday's dose and 1 today. This was all described to the patient. I re-chela a line around the area of erythema. Patient understands and is agreeable this plan. If the area of cellulitis gets worse before following up on he is to return to the emergency department. At this time patient discharged home in stable condition. ED Disposition - Plan for ED Patient: Disposition: Home or Assisted Living Diagnosis: Cellulitis, Leg wound, left Instructions: ED Cellulitis Referrals: Will Jaimes MD [Primary Care Provider] - 2 Days for wound check
[2020-03-09 16:10] LABS: Absolute Lymphocyte Count 1.95 X10^3/uL (0.83-4.51); Absolute Neutrophil Count 5.7 X10^3/uL (2.0-7.7); Basophil# 0.02 X10^3/uL; Basophil% 0.2 % (0-1); Eosinophil# 0.35 X10^3/uL; Eosinophils% 4.1 % (0-5); Hematocrit 42.3 % (40-54); Hemoglobin 14.3 g/dL (13.0-16.5); Lymphocyte # 1.95 X10^3/ul (4.0); Lymphocyte % 22.6 % (19-41); Mean Corp Hgb Conc 33.8 g/dL (32-36); Mean Corpuscular Hgb 30.4 pg (27.0-32.0); Mean Corpuscular Volume 89.8 fL (80-94); Mean Platelet Vol. 9.5 fl (6.2-12.0); Monocyte# 0.58 X10^3/uL; Monocyte% 6.7 % (0-10); NRBC Flagged by Analyzer 0 % (0-5); Neutrophil % 65.9 % (47-70); Platelet Count 321 K/mm3 (150-450); RBC Distribution Width CV 12.5 % (11.6-14.6); RBC Distribution Width SD 40.7 fl (35.1-43.9); Red Blood Count 4.71 M/mm3 (4.6-6.2); White Blood Count 8.6 K/mm3 (4.4-11.0)
[2020-03-09 16:23] LABS: Anion Gap 4 (5-15); BUN 13 mg/dL (7-18); BUN/Creat Ratio 15.7 RATIO (10-20); Calcium,Total 8.4 mg/dL (8.5-10.1); Chloride 106 mmol/L (98-107); Creatinine, Serum 0.83 mg/dL (0.70-1.30); EST Glomerular Filtration Rate 125 mL/min (>60); Est Glom Filt Rate - Afr Amer 152 mL/min (>60); Glucose 112 mg/dL (74-106); Potassium 3.8 mmol/L (3.5-5.1); Sodium Level 137 mmol/L (136-145)
[2020-03-09 16:43] LABS: Erythrocyte Sedimentation Rate 43 mm/hr (0-15)
[2020-03-09 17:15] VITALS: BP 139/76; PULSE 83; RESP 18; O2SAT 99
== END 2020-03-09 17:27 | disposition home or self-care (01) ==
PROVIDERS: Emergency Provider Emergency Medicine; PCP Family Medicine
DX: L03.116 Cellulitis of left lower limb (principal); S81.802A Unspecified open wound, left lower leg, initial encounter; F17.200 Nicotine dependence, unspecified, uncomplicated; E66.9 Obesity, unspecified; X58.XXXA Exposure to other specified factors, initial encounter
CPT/HCPCS: 80048; 85025; 85652; 86140; 99282; A4216

== ENCOUNTER 2020-04-01 15:15 | Outpatient (RCR) | payer BC, SELFPAY ==
[2020-03-09 00:50] VITALS: BP 142/76; PULSE 100; RESP 16; TEMP 36.9
--- NOTE | 2020-03-09 11:03 | WC ---
Spoke with Grisel De Los Santos regarding patient and the information I was given by the patients father. The recommendation was to speak with the patient and confirm that the patient is taking the new ATB ordered and the extent that the redness was extending beyond the drawn line. This nurse spoke with the patient and the patient stated that he was taking the ATB and that the redness had extended 2 past the drawn line. Patient was instructed to go to the ER for examination and treatment.
[2020-03-11 15:03] VITALS: BP 155/87; PULSE 89; RESP 16; TEMP 35.8; BMI 46.8
--- NOTE | 2020-03-11 20:42 | PCM.WC.PN ---
(1) Traumatic open wound of left lower leg with delayed healing Status: Acute Code(s): S81.802D - Unspecified open wound, left lower leg, subsequent encounter (2) MRSA (methicillin resistant Staphylococcus aureus) infection Status: Acute Code(s): A49.02 - Methicillin resistant Staphylococcus aureus infection, unspecified site (3) Obesity Status: Acute Code(s): E66.9 - Obesity, unspecified (4) Bipolar disorder Status: Chronic Code(s): F31.9 - Bipolar disorder, unspecified Type of Wound Date of Service: 03/11/20 Chief Complaint: Wound to left lower extremity x4 weeks History of Wound: This is a 19 year old white male who presents to the wound healing center today for a traumatic wound to his left lower extremity. He has a past medical history as listed above. On 01/27/2020 the patient had a traumatic injury to his left hess where he hit it on a industrial dump bucket. He went to the emergency department on the and an x-ray was done at [facility] and was said to be negative. He was placed on both Keflex and Cipro. He states that he finished the ciprofloxacin yesterday. For wound care he has been utilizing iodine and gauze change it daily. He states that the site is not healing. He denies any significant drainage. He denies any significant pain. He denies any other acute concerns. All other systems reviewed and negative with exception of those listed above. Progress of Wound: 03/04/2020?patient reports an increase in pain to the wound, most recent cultures were reviewed and negative, he does also note increased surrounding warmth and redness. Given the concern for cellulitis and depth of 6.5 cm will check a x-ray and also treat empirically with Augmentin. Discussed with patient and mother that if any symptoms worsen or he develops any systemic signs of infection such as fever, chills,worsening pain, or body aches that he should go to the emergency department immediately. 03/11/2020?patient's prior cultures were reviewed and showed MRSA and Streptococcus, patient was previously started on clindamycin based on the sensitivity. Patient did also have 2 ER visits since his last appointment due to concern for worsening cellulitis, blood work was done which showed white count trending to normalization and also he had blood cultures done which were normal. Cellulitis seems to be resolving, no new concerns. - Physical Exam Vital Signs Temp Pulse Resp BP 96.5 F L 89 16 155/87 H 03/11/20 15:03 03/11/20 15:03 03/11/20 15:03 03/11/20 15:03 General: Alert, Oriented x3, Cooperative, No apparent distress HEENT: Atraumatic Oral: Moist Mucosa Lungs: Clear to auscultation Cardiovascular: Regular rate Abdomen: Soft, Non Tender, Obese Extremities: No clubbing, No cyanosis, Edema - Generalized bilateral lower extremity edema, Peripheral Pulses Normal Skin: Ulcer/ Wound - See nursing documentation, slough and devitalized tissue present, surrounding cellulitis is improving, depth is improving as well. Neurological: Neuro grossly intact Psych/Mental Status: Normal Affect, Appropriate, Alert and oriented to time, place, person, mood and affect Debridement Note Post-Debridement Measurements/Treatment WC - Nurse 2 - General Ulcer CM Notes Start: 03/11/20 15:03 Freq: Status: Active Protocol: Activity Type Activity Date Activity User E-Sign Co-Sign Detail Recorded Client Recorded Date Recorded By Document 03/11/20 15:17 MW [id number] 03/11/20 15:20 MW 03/11/20 15:17 Wound Center Nurse 2 #1- L HESS (POST TRAUMA) -Time 15:17 -Correct Patient Yes -Correct Side, Site, Position Yes -Correct Procedure Yes -Procedure Performed Yes -Type of Procedure Debridement -Clinical Debridement Subcutaneous -Tissue Removed Subcutaneous -Post Debridement (cm) - Length 1.5 -Post Debridement (cm) - Width 1.2 -Post Debridement (cm) - Depth 2.0 -Total Square (Post) (cm) 1.80 -Area of Debridement (cm) - Length 1.5 -Area of Debridement (cm) - Width 1.2 -Total Square (Area) (cm) 1.80 -Tunneling No -Undermining/Tunneling No -Circular Undermining No -Wound/Ulcer Outcome Not Healed -Ulcer Cleansing Rinsed/ Irrigated with Saline -Foul Odor after Cleansing No -Bioengineered Tissue No -Bleeding Controlled with Pressure -Offloading No -Treatment Response Procedure Tolerated Well -Debridement - Subq, 1st 20sq cm Yes Pain Scale: 0-10 Numeric Is Patient Pain Free? Yes WC - Nurse 3 - General Ulcer D/C NN Start: 03/11/20 15:03 Freq: Status: Active Protocol: Activity Type Activity Date Activity User E-Sign Co-Sign Detail Recorded Client Recorded Date Recorded By Document 03/11/20 15:20 PL [id number] 03/12/20 15:30 PL 03/11/20 15:20 Wound Care Nurse 3 #1- L HESS (POST TRAUMA) -Ulcer Cleansing Rinsed/ Irrigated with Saline -Foul Odor after Cleansing No -Primary Dressing Applied Aquacel AG 4x4 -Primary Dressing Covered/Secured with Dry Gauze & Roll Gauze, Secured with Tape -Aquacel AG 4x4 1 Left -Tubular Bandage Single Layer -Size of Tubigrip Used Size F -Size F ($) 1 Pain Scale: 0-10 Numeric Is Patient Pain Free? Yes WC - Visit Discharge Discharge Condition Stable Ambulatory Status Ambulatory Transportation Private Auto Clinical Summary of Care Provided Yes Wound debrided: Wound to left lower extremity Laterality: Left Type of Debridement: Excisional debridement Anesthesia Used: 5% Lidocaine Gel Depth: in the subcutaneous layer, to muscle Percentage of wound debrided: 100 Instrument Used: 5mm curette Tissue Removed: Slough and devitalized tissue Severity: Fat Layer Exposed Amount of bleeding with debridement: Mild Bleeding Controlled with: Pressure Patient tolerated procedure well Assessment/Plan Assessment: see above diagnoses Plan: The patient was seen and examined at the wound center today and was updated on the plan of care. A subcutaneous/muscular debridement was performed today. The patient tolerated the procedure well. The patients wound care will consist of:packing with silvercell rope daily and cover with gauze, due to depth will apply for snap vac. Wound cultures were collected again today. Baseline bloodwork and xray ordered prior, will request [facility] records. Wound cultures were reexamined and showed MRSA and Streptococcus, patient tolerating the clindamycin well which is sensitive to the bacteria. X-ray was normal. Cellulitis seems to be improving. Blood work did show low prealbumin and advised on the importance of protein supplementation. Vascular studies held. Patient educated on the importance of diet on wound healing and instructed to increase protein and vitamin C intake. Patient verbalized understanding. Given the delayed wound healing greater than 4 weeks now, will apply for an skin substitute as well. Patient will follow up at wound healing center in one week or sooner if needed. This note was generated with [employer] software. It may contain incorrect words, spelling, and punctuation that were not noted in checking the note before signing. [id number]: [id number] Charissa musc/fascia 20 sq cm/<
[2020-03-18 15:31] VITALS: BP 149/82; PULSE 85; RESP 16; TEMP 36.6; BMI 46.8
--- NOTE | 2020-03-19 14:28 | PN.PCM_ITS ---
(1) Traumatic open wound of left lower leg with delayed healing Status: Acute Current Visit: Yes Code(s): S81.802D - Unspecified open wound, left lower leg, subsequent encounter (2) MRSA (methicillin resistant Staphylococcus aureus) infection Status: Acute Current Visit: Yes Code(s): A49.02 - Methicillin resistant Staphylococcus aureus infection, unspecified site (3) Obesity Status: Acute Current Visit: Yes Code(s): E66.9 - Obesity, unspecified (4) Bipolar disorder Status: Chronic Current Visit: Yes Code(s): F31.9 - Bipolar disorder, unspecified Type of Wound Date of Service: 03/18/20 Chief Complaint: Wound to left lower extremity x4 weeks History of Wound: This is a 19 year old white male who presents to the wound healing center today for a traumatic wound to his left lower extremity. He has a past medical history as listed above. On 01/27/2020 the patient had a traumatic injury to his left hess where he hit it on a industrial dump bucket. He went to the emergency department on the and an x-ray was done at [facility] and was said to be negative. He was placed on both Keflex and Cipro. He states that he finished the ciprofloxacin yesterday. For wound care he has been utilizing iodine and gauze change it daily. He states that the site is not healing. He denies any significant drainage. He denies any significant pain. He denies any other acute concerns. All other systems reviewed and negative with exception of those listed above. Progress of Wound: 03/04/2020?patient reports an increase in pain to the wound, most recent cultures were reviewed and negative, he does also note increased surrounding warmth and redness. Given the concern for cellulitis and depth of 6.5 cm will check a x-ray and also treat empirically with Augmentin. Discussed with patient and mother that if any symptoms worsen or he develops any systemic signs of infection such as fever, chills,worsening pain, or body aches that he should go to the emergency department immediately. 03/11/2020?patient's prior cultures were reviewed and showed MRSA and Streptococcus, patient was previously started on clindamycin based on the sensitivity. Patient did also have 2 ER visits since his last appointment due to concern for worsening cellulitis, blood work was done which showed white count trending to normalization and also he had blood cultures done which were normal. Cellulitis seems to be resolving, no new concerns. 03/18/2020?patient cellulitis seems to be completely resolved, wound is making improvement, no new Concerns. - Physical Exam Vital Signs Temp Pulse Resp BP 97.8 F 85 16 149/82 H 03/18/20 15:31 03/18/20 15:31 03/18/20 15:31 03/18/20 15:31 General: Alert, Oriented x3, Cooperative, No apparent distress HEENT: Atraumatic Oral: Moist Mucosa Lungs: Clear to auscultation, Normal air movement, No rhonchi, No wheeze Cardiovascular: Regular rate, Regular Rhythm Abdomen: Soft, Non Tender, Obese Extremities: No clubbing, No cyanosis, Edema - Generalized bilateral lower extremity edema, Peripheral Pulses Normal Skin: Ulcer/ Wound - See nursing documentation, slough and devitalized tissue present, site does tunnel at 1:00 but depth is improving Wound Measurements and Assessment WC - Nurse 1 - General Ulcer Measurement Start: 03/11/20 15:03 Freq: Status: Active Protocol: Activity Type Activity Date Activity User E-Sign Co-Sign Detail Recorded Client Recorded Date Recorded By Document 03/18/20 15:31 [facility] [id number] 03/18/20 15:42 [facility] 03/18/20 15:31 Wound Center Nurse 1 [Ulcer Assessment] #1- L HESS (POST TRAUMA) -Combined with other wound No -Current Size (cm) - Length 1.3 -Current Size (cm) - Width 1.4 -Current Size (cm) - Depth 1.6 -Total Square Cm 1.82 -Photo Taken No -Epithelialization Small 1-33% -Tunneling No -Undermining/Tunneling No -Circular Undermining No -Exudate Amt Small -Exudate Type Serosanguineous -Wound Margin Distinct, Outline Attached -Granulation Amt Medium (34-66%) -Granulation Quality Red -Slough/Fibrin Yes -Necrosis Amt Medium (34-66%) -Necrotic Tissue Type Adherent Slough -Texture ([place]-wound Skin Appearance) Assessed, Scarring -Moisture ([place]-wound Skin Appearance Assessed, ) Maceration -Color ([place]-wound Skin Appearance) Assessed, Erythema,Palor -Temperature ([place]-wound Skin No Abnormality Appearance) (Pt Warm) -Tenderness on Palpation ([place]-wound No Skin Appearance) -Ulcer Cleansing soapy water -Foul Odor after Cleansing No -Anesthetic Used 4% Lidocaine Solution [Edema Assessment] -Lower Limb Edema Present Yes -Left Calf (cm) 59.7 -Left Ankle (cm) 33.6 - Nurse 2 - General Ulcer CM Notes Start: 03/11/20 15:03 Freq: Status: Active Protocol: Activity Type Activity Date Activity User E-Sign Co-Sign Detail Recorded Client Recorded Date Recorded By Document 03/18/20 15:48 MW [id number] 03/18/20 15:51 MW 03/18/20 15:48 Wound Center Nurse 2 [Procedure/Treatment] #1- L HESS (POST TRAUMA) -Time 15:50 -Correct Patient Yes -Correct Side, Site, Position Yes -Correct Procedure Yes -Procedure Performed Yes -Type of Procedure Debridement -Clinical Debridement Subcutaneous -Tissue Removed Subcutaneous -Post Debridement (cm) - Length 1.1 -Post Debridement (cm) - Width 1.0 -Post Debridement (cm) - Depth 2.1 -Total Square (Post) (cm) 1.10 -Area of Debridement (cm) - Length 1.1 -Area of Debridement (cm) - Width 1.0 -Total Square (Area) (cm) 1.10 -Tunneling No -Undermining/Tunneling No -Circular Undermining No -Wound/Ulcer Outcome Not Healed -Ulcer Cleansing Rinsed/ Irrigated with Saline -Foul Odor after Cleansing No -Bioengineered Tissue No -Bleeding Controlled with Pressure -Offloading No -Treatment Response Procedure Tolerated Well -Debridement - Subq, 1st 20sq cm Yes [See Physician Procedure note for Specifics] Pain Scale: 0-10 Numeric [Pain] -Is Patient Pain Free? Yes - Nurse 3 - General Ulcer D/C NN Start: 03/11/20 15:03 Freq: Status: Active Protocol: Activity Type Activity Date Activity User E-Sign Co-Sign Detail Recorded Client Recorded Date Recorded By Document 03/18/20 15:56 RB [id number] 03/18/20 15:59 RB 03/18/20 15:56 Wound Care Nurse 3 [Wound Dressing] #1- L HESS (POST TRAUMA) -Ulcer Cleansing Rinsed/ Irrigated with Saline -Primary Dressing Applied Aquacel AG 4x4 -Primary Dressing Covered/Secured Dry Gauze, with Secured with Tape -Aquacel AG 4x4 1 [Compression Applied] Left -Tubular Bandage Double Layer -Size of Tubigrip Used Size F -Size F ($) 2 [Post Procedure Tolerated] -Treatment Response Procedure Tolerated Well Pain Scale: 0-10 Numeric [Pain] -Is Patient Pain Free? Yes WC - Visit Discharge [Visit Discharge Information] -Discharge Condition Stable -Ambulatory Status Ambulatory -Transportation Private Auto -Medication Reconcilliation completed No & provided to patient/care provider -Clinical Summary of Care Provided Yes Musculoskeletal: No Tenderness to Palpation of Joints or Extremities Neurological: Neuro grossly intact Psych/Mental Status: Normal Affect, Appropriate, Alert and oriented to time, place, person, mood and affect Debridement Note Post-Debridement Measurements/Treatment WC - Nurse 2 - General Ulcer CM Notes Start: 03/11/20 15:03 Freq: Status: Active Protocol: Activity Type Activity Date Activity User E-Sign Co-Sign Detail Recorded Client Recorded Date Recorded By Document 03/11/20 15:17 MW [id number] 03/11/20 15:20 MW Document 03/18/20 15:48 MW [id number] 03/18/20 15:51 MW 03/11/20 03/18/20 15:17 15:48 Wound Center Nurse 2 #1- L HESS (POST TRAUMA) -Time 15:17 15:50 -Correct Patient Yes Yes -Correct Side, Site, Position Yes Yes -Correct Procedure Yes Yes -Procedure Performed Yes Yes -Type of Procedure Debridement Debridement -Clinical Debridement Subcutaneous Subcutaneous -Tissue Removed Subcutaneous Subcutaneous -Post Debridement (cm) - Length 1.5 1.1 -Post Debridement (cm) - Width 1.2 1.0 -Post Debridement (cm) - Depth 2.0 2.1 -Total Square (Post) (cm) 1.80 1.10 -Area of Debridement (cm) - Length 1.5 1.1 -Area of Debridement (cm) - Width 1.2 1.0 -Total Square (Area) (cm) 1.80 1.10 -Tunneling No No -Undermining/Tunneling No No -Circular Undermining No No -Wound/Ulcer Outcome Not Healed Not Healed -Ulcer Cleansing Rinsed/ Rinsed/ Irrigated with Irrigated with Saline Saline -Foul Odor after Cleansing No No -Bioengineered Tissue No No -Bleeding Controlled with Pressure Pressure -Offloading No No -Treatment Response Procedure Procedure Tolerated Well Tolerated Well -Debridement - Subq, 1st 20sq cm Yes Yes Pain Scale: 0-10 Numeric Is Patient Pain Free? Yes Yes - Nurse 3 - General Ulcer D/C NN Start: 03/11/20 15:03 Freq: Status: Active Protocol: Activity Type Activity Date Activity User E-Sign Co-Sign Detail Recorded Client Recorded Date Recorded By Document 03/11/20 15:20 PL [id number] 03/12/20 15:30 PL Document 03/18/20 15:56 RB [id number] 03/18/20 15:59 RB 03/11/20 03/18/20 15:20 15:56 Wound Care Nurse 3 #1- L HESS (POST TRAUMA) -Ulcer Cleansing Rinsed/ Rinsed/ Irrigated with Irrigated with Saline Saline -Foul Odor after Cleansing No -Primary Dressing Applied Aquacel AG 4x4 Aquacel AG 4x4 -Primary Dressing Covered/Secured with Dry Gauze & Dry Gauze, Roll Gauze, Secured with Secured with Tape Tape -Aquacel AG 4x4 1 1 Left -Tubular Bandage Single Layer Double Layer -Size of Tubigrip Used Size F Size F -Size F ($) 1 2 Treatment Response Procedure Tolerated Well Pain Scale: 0-10 Numeric Is Patient Pain Free? Yes Yes - Visit Discharge Discharge Condition Stable Stable Ambulatory Status Ambulatory Ambulatory Transportation Private Auto Private Auto Medication Reconcilliation completed & No provided to patient/care provider Clinical Summary of Care Provided Yes Yes Wound debrided: Traumatic wound to left lower extremity Laterality: Left Type of Debridement: Excisional debridement Anesthesia Used: 5% Lidocaine Gel Depth: Down to and including healthy tissue, in the subcutaneous layer Percentage of wound debrided: 100 Instrument Used: 5mm curette Tissue Removed: Slough and devitalized tissue Severity: Fat Layer Exposed Amount of bleeding with debridement: Mild Bleeding Controlled with: Pressure Patient tolerated procedure well Assessment/Plan Active Problems Traumatic open wound of left lower leg with delayed healing (Acute) Obesity (Acute) Bipolar disorder (Chronic) MRSA (methicillin resistant Staphylococcus aureus) infection (Acute) Assessment: see above diagnoses Plan: The patient was seen and examined at the wound center today and was updated on the plan of care. A subcutaneous debridement was performed today. The patient tolerated the procedure well. The patients wound care will consist of:packing with silvercell rope daily and cover with gauze, due to depth will apply for snap vac. Wound cultures were collected again today. Baseline bloodwork and xray ordered prior, will request braymer records. Wound cultures were reexamined and showed MRSA and Streptococcus, patient tolerating the clindamycin well which is sensitive to the bacteria. X-ray was normal. Cellulitis seems to be improving. Blood work did show low prealbumin and advised on the importance of protein supplementation. Vascular studies held. Patient educated on the importance of diet on wound healing and instructed to increase protein and vitamin C intake. Patient verbalized understanding. Given the delayed wound healing greater than 4 weeks now, will apply for an skin substitute as well. Patient will follow up at wound healing center in one week or sooner if needed. This note was generated with [employer] dictation software. It may contain incorrect words, spelling, and punctuation that were not noted in checking the note before signing. [id number]: [id number] Charissa subq tissue 20 sq cm/<
[2020-03-25 15:24] VITALS: BP 163/95; PULSE 107; RESP 16; TEMP 36.1; BMI 46.8
--- NOTE | 2020-03-25 16:59 | PCM.WC.PN ---
(1) Traumatic open wound of left lower leg with delayed healing Status: Acute Current Visit: Yes Code(s): S81.802D - Unspecified open wound, left lower leg, subsequent encounter (2) MRSA (methicillin resistant Staphylococcus aureus) infection Status: Acute Current Visit: Yes Code(s): A49.02 - Methicillin resistant Staphylococcus aureus infection, unspecified site (3) Obesity Status: Acute Current Visit: Yes Code(s): E66.9 - Obesity, unspecified (4) Bipolar disorder Status: Chronic Current Visit: Yes Code(s): F31.9 - Bipolar disorder, unspecified Type of Wound Date of Service: 03/25/20 Chief Complaint: Wound to left lower extremity x4 weeks History of Wound: This is a 19 year old white male who presents to the wound healing center today for a traumatic wound to his left lower extremity. He has a past medical history as listed above. On 01/27/2020 the patient had a traumatic injury to his left hess where he hit it on a industrial dump bucket. He went to the emergency department on the and an x-ray was done at [facility] and was said to be negative. He was placed on both Keflex and Cipro. He states that he finished the ciprofloxacin yesterday. For wound care he has been utilizing iodine and gauze change it daily. He states that the site is not healing. He denies any significant drainage. He denies any significant pain. He denies any other acute concerns. All other systems reviewed and negative with exception of those listed above. Progress of Wound: 03/04/2020?patient reports an increase in pain to the wound, most recent cultures were reviewed and negative, he does also note increased surrounding warmth and redness. Given the concern for cellulitis and depth of 6.5 cm will check a x-ray and also treat empirically with Augmentin. Discussed with patient and mother that if any symptoms worsen or he develops any systemic signs of infection such as fever, chills,worsening pain, or body aches that he should go to the emergency department immediately. 03/11/2020?patient's prior cultures were reviewed and showed MRSA and Streptococcus, patient was previously started on clindamycin based on the sensitivity. Patient did also have 2 ER visits since his last appointment due to concern for worsening cellulitis, blood work was done which showed white count trending to normalization and also he had blood cultures done which were normal. Cellulitis seems to be resolving, no new concerns. 03/18/2020?patient cellulitis seems to be completely resolved, wound is making improvement, no new Concerns. 03/25/2020?patient cellulitis seems to be returned and small area around the wound outlined, wound is making improvement, will place patient back on clindamycin which was susceptible to his prior culture. He denies any systemic or localized signs of infection at this time. - Physical Exam Vital Signs Temp Pulse Resp BP 97 F L 107 H 16 163/95 H 03/25/20 15:24 03/25/20 15:24 03/25/20 15:24 03/25/20 15:24 General: Alert, Oriented x3, Cooperative, No apparent distress HEENT: Atraumatic Oral: Moist Mucosa Lungs: Clear to auscultation, Normal air movement Cardiovascular: Regular rate, Regular Rhythm, Normal S1, Normal S2, No murmurs Abdomen: Soft, Non Tender Extremities: No clubbing, No cyanosis, Edema - Generalized bilateral lower extremity edema, Peripheral Pulses Normal Skin: Ulcer/ Wound - See nursing documentation, slough and devitalized tissue present, surrounding cellulitis present around the wound and outlined, site is warm and erythematous Wound Measurements and Assessment WC - Nurse 1 - General Ulcer Measurement Start: 03/11/20 15:03 Freq: Status: Active Protocol: Activity Type Activity Date Activity User E-Sign Co-Sign Detail Recorded Client Recorded Date Recorded By Document 03/25/20 15:24 [facility] [id number] 03/25/20 15:32 [facility] 03/25/20 15:24 Wound Center Nurse 1 [Ulcer Assessment] #1- L HESS (POST TRAUMA) -Combined with other wound No -Current Size (cm) - Length 1.5 -Current Size (cm) - Width 1 -Current Size (cm) - Depth 0.4 -Total Square Cm 1.5 -Photo Taken No -Epithelialization None Present -Tunneling Yes -Tunneling Position (O'clock) 12 -Tunneling Distance (cm) 0.6 -Undermining/Tunneling No -Circular Undermining No -Exudate Amt Small -Exudate Type Serosanguineous -Wound Margin Distinct, Outline Attached -Granulation Amt Medium (34-66%) -Granulation Quality Red -Slough/Fibrin Yes -Necrosis Amt Small (1-33%) -Necrotic Tissue Type Adherent Slough -Texture ([place]-wound Skin Appearance) Assessed, Scarring -Moisture ([place]-wound Skin Appearance Assessed, ) Maceration -Color ([place]-wound Skin Appearance) Assessed,Palor -Temperature ([place]-wound Skin No Abnormality Appearance) (Pt Warm) -Tenderness on Palpation ([place]-wound No Skin Appearance) -Ulcer Cleansing Rinsed/ Irrigated with Saline -Foul Odor after Cleansing No -Anesthetic Used 4% Lidocaine Solution [Edema Assessment] -Lower Limb Edema Present Yes -Left Calf (cm) 62 -Left Ankle (cm) 34.1 WC - Nurse 2 - General Ulcer CM Notes Start: 03/11/20 15:03 Freq: Status: Active Protocol: Activity Type Activity Date Activity User E-Sign Co-Sign Detail Recorded Client Recorded Date Recorded By Document 03/25/20 15:39 MW [id number] 03/25/20 15:44 MW 03/25/20 15:39 Wound Center Nurse 2 [Procedure/Treatment] #1- L HESS (POST TRAUMA) -Time 15:42 -Correct Patient Yes -Correct Side, Site, Position Yes -Correct Procedure Yes -Procedure Performed Yes -Type of Procedure Debridement -Clinical Debridement Subcutaneous -Tissue Removed Subcutaneous -Post Debridement (cm) - Length 1.1 -Post Debridement (cm) - Width 0.8 -Post Debridement (cm) - Depth 1.7 -Total Square (Post) (cm) 0.88 -Area of Debridement (cm) - Length 1.1 -Area of Debridement (cm) - Width 0.8 -Total Square (Area) (cm) 0.88 -Tunneling No -Undermining/Tunneling No -Circular Undermining No -Wound/Ulcer Outcome Not Healed -Ulcer Cleansing Rinsed/ Irrigated with Saline -Foul Odor after Cleansing No -Bioengineered Tissue No -Bleeding Controlled with Pressure -Offloading No -Debridement - Subq, 1st 20sq cm Yes [See Physician Procedure note for Specifics] Pain Scale: 0-10 Numeric [Pain] -Is Patient Pain Free? Yes WC - Nurse 3 - General Ulcer D/C NN Start: 03/11/20 15:03 Freq: Status: Active Protocol: Activity Type Activity Date Activity User E-Sign Co-Sign Detail Recorded Client Recorded Date Recorded By Document 03/25/20 15:55 [facility] [id number] 03/25/20 15:56 [facility] 03/25/20 15:55 Wound Care Nurse 3 [Wound Dressing] #1- Maicol HESS (POST TRAUMA) -Ulcer Cleansing Rinsed/ Irrigated with Saline -Foul Odor after Cleansing No -Primary Dressing Applied Aquacel AG 4x4, Other -Other Dressing aquacel rope -Primary Dressing Covered/Secured Secured with with Tape,Other -Other Covering abd -Aquacel AG 4x4 1 [Compression Applied] Left -Other pt refused application. will apply at home [Post Procedure Tolerated] -Treatment Response Procedure Tolerated Well Pain Scale: 0-10 Numeric [Pain] -Is Patient Pain Free? Yes WC - Visit Discharge [Visit Discharge Information] -Discharge Condition Stable -Ambulatory Status Ambulatory -Transportation Private Auto Neurological: Neuro grossly intact Psych/Mental Status: Normal Affect, Appropriate, Alert and oriented to time, place, person, mood and affect Debridement Note Post-Debridement Measurements/Treatment WC - Nurse 2 - General Ulcer CM Notes Start: 03/11/20 15:03 Freq: Status: Active Protocol: Activity Type Activity Date Activity User E-Sign Co-Sign Detail Recorded Client Recorded Date Recorded By Document 03/11/20 15:17 MW [id number] 03/11/20 15:20 MW Document 03/18/20 15:48 MW [id number] 03/18/20 15:51 MW Document 03/25/20 15:39 MW [id number] 03/25/20 15:44 MW 03/11/20 03/18/20 03/25/20 15:17 15:48 15:39 Wound Center Nurse 2 #1- Maicol HESS (POST TRAUMA) -Time 15:17 15:50 15:42 -Correct Patient Yes Yes Yes -Correct Side, Site, Position Yes Yes Yes -Correct Procedure Yes Yes Yes -Procedure Performed Yes Yes Yes -Type of Procedure Debridement Debridement Debridement -Clinical Debridement Subcutaneous Subcutaneous Subcutaneous -Tissue Removed Subcutaneous Subcutaneous Subcutaneous -Post Debridement (cm) - Length 1.5 1.1 1.1 -Post Debridement (cm) - Width 1.2 1.0 0.8 -Post Debridement (cm) - Depth 2.0 2.1 1.7 -Total Square (Post) (cm) 1.80 1.10 0.88 -Area of Debridement (cm) - Length 1.5 1.1 1.1 -Area of Debridement (cm) - Width 1.2 1.0 0.8 -Total Square (Area) (cm) 1.80 1.10 0.88 -Tunneling No No No -Undermining/Tunneling No No No -Circular Undermining No No No -Wound/Ulcer Outcome Not Healed Not Healed Not Healed -Ulcer Cleansing Rinsed/ Rinsed/ Rinsed/ Irrigated with Irrigated with Irrigated with Saline Saline Saline -Foul Odor after Cleansing No No No -Bioengineered Tissue No No No -Bleeding Controlled with Pressure Pressure Pressure -Offloading No No No -Treatment Response Procedure Procedure Tolerated Well Tolerated Well -Debridement - Subq, 1st 20sq cm Yes Yes Yes Pain Scale: 0-10 Numeric Is Patient Pain Free? Yes Yes Yes - Nurse 3 - General Ulcer D/C NN Start: 03/11/20 15:03 Freq: Status: Active Protocol: Activity Type Activity Date Activity User E-Sign Co-Sign Detail Recorded Client Recorded Date Recorded By Document 03/11/20 15:20 PL [id number] 03/12/20 15:30 PL Document 03/18/20 15:56 RB [id number] 03/18/20 15:59 RB Document 03/25/20 15:55 [facility] [id number] 03/25/20 15:56 [facility] 03/11/20 03/18/20 03/25/20 15:20 15:56 15:55 Wound Care Nurse 3 #1- L HESS (POST TRAUMA) -Ulcer Cleansing Rinsed/ Rinsed/ Rinsed/ Irrigated with Irrigated with Irrigated with Saline Saline Saline -Foul Odor after Cleansing No No -Primary Dressing Applied Aquacel AG 4x4 Aquacel AG 4x4 Aquacel AG 4x4, Other -Other Dressing aquacel rope -Primary Dressing Covered/Secured with Dry Gauze & Dry Gauze, Secured with Roll Gauze, Secured with Tape,Other Secured with Tape Tape -Other Covering abd -Aquacel AG 4x4 1 1 1 Left -Tubular Bandage Single Layer Double Layer -Size of Tubigrip Used Size F Size F -Size F ($) 1 2 -Other pt refused application. will apply at home Treatment Response Procedure Procedure Tolerated Well Tolerated Well Pain Scale: 0-10 Numeric Is Patient Pain Free? Yes Yes Yes - Visit Discharge Discharge Condition Stable Stable Stable Ambulatory Status Ambulatory Ambulatory Ambulatory Transportation Private Auto Private Auto Private Auto Medication Reconcilliation completed & No provided to patient/care provider Clinical Summary of Care Provided Yes Yes Wound debrided: Left lower extremity wound Laterality: Left Type of Debridement: Excisional debridement Anesthesia Used: 5% Lidocaine Gel Depth: in the subcutaneous layer Percentage of wound debrided: 100 Instrument Used: 3mm curette Tissue Removed: Slough and devitalized tissue Severity: Fat Layer Exposed Amount of bleeding with debridement: Mild Bleeding Controlled with: Pressure Patient tolerated procedure well Assessment/Plan Active Problems Traumatic open wound of left lower leg with delayed healing (Acute) Obesity (Acute) Bipolar disorder (Chronic) MRSA (methicillin resistant Staphylococcus aureus) infection (Acute) Assessment: see above diagnoses Plan: The patient was seen and examined at the wound center today and was updated on the plan of care. A subcutaneous debridement was performed today. The patient tolerated the procedure well. The patients wound care will consist of:packing with silvercell rope daily and cover with gauze. Wound cultures were collected again today and patient treated with clindamycin for cellulitis. Baseline bloodwork and xray ordered prior, will request [facility] records. Wound cultures were reexamined and showed MRSA and Streptococcus, patient tolerating the clindamycin well which is sensitive to the bacteria. X-ray was normal. Cellulitis seems to be improving. Blood work did show low prealbumin and advised on the importance of protein supplementation. Vascular studies held. Patient educated on the importance of diet on wound healing and instructed to increase protein and vitamin C intake. Patient verbalized understanding. Given the delayed wound healing greater than 4 weeks now, will apply for an skin substitute as well. Patient will follow up at wound healing center in one week or sooner if needed. This note was generated with [employer] dictation software. It may contain incorrect words, spelling, and punctuation that were not noted in checking the note before signing. [id number]: [id number] Charissa subq tissue 20 sq cm/<
[2020-04-01 15:18] VITALS: BP 156/95; PULSE 87; RESP 22; TEMP 36.1; BMI 46.8
[2020-04-01 16:00] VITALS: BP 150/88; PULSE 88; RESP 18
--- NOTE | 2020-04-01 20:30 | PCM.WC.PN ---
(1) Traumatic open wound of left lower leg with delayed healing Status: Acute Current Visit: Yes Code(s): S81.802D - Unspecified open wound, left lower leg, subsequent encounter Comment: Secondary to puncture wound (2) MRSA (methicillin resistant Staphylococcus aureus) infection Status: Acute Current Visit: Yes Code(s): A49.02 - Methicillin resistant Staphylococcus aureus infection, unspecified site (3) Obesity Status: Acute Current Visit: Yes Code(s): E66.9 - Obesity, unspecified (4) Bipolar disorder Status: Chronic Current Visit: Yes Code(s): F31.9 - Bipolar disorder, unspecified Type of Wound Date of Service: 04/01/20 Chief Complaint: Wound to left lower extremity x4 weeks History of Wound: This is a 19 year old white male who presents to the wound healing center today for a traumatic wound to his left lower extremity. He has a past medical history as listed above. On 01/27/2020 the patient had a traumatic injury to his left hess where he hit it on a industrial dump bucket. He went to the emergency department on the and an x-ray was done at [facility] and was said to be negative. He was placed on both Keflex and Cipro. He states that he finished the ciprofloxacin yesterday. For wound care he has been utilizing iodine and gauze change it daily. He states that the site is not healing. He denies any significant drainage. He denies any significant pain. He denies any other acute concerns. All other systems reviewed and negative with exception of those listed above. Progress of Wound: 03/04/2020?patient reports an increase in pain to the wound, most recent cultures were reviewed and negative, he does also note increased surrounding warmth and redness. Given the concern for cellulitis and depth of 6.5 cm will check a x-ray and also treat empirically with Augmentin. Discussed with patient and mother that if any symptoms worsen or he develops any systemic signs of infection such as fever, chills,worsening pain, or body aches that he should go to the emergency department immediately. 03/11/2020?patient's prior cultures were reviewed and showed MRSA and Streptococcus, patient was previously started on clindamycin based on the sensitivity. Patient did also have 2 ER visits since his last appointment due to concern for worsening cellulitis, blood work was done which showed white count trending to normalization and also he had blood cultures done which were normal. Cellulitis seems to be resolving, no new concerns. 03/18/2020?patient cellulitis seems to be completely resolved, wound is making improvement, no new Concerns. 03/25/2020?patient cellulitis seems to be returned and small area around the wound outlined, wound is making improvement, will place patient back on clindamycin which was susceptible to his prior culture. He denies any systemic or localized signs of infection at this time. 04/01/2020?cellulitis is improved, recent cultures were reviewed and negative, patient tolerating the clindamycin well and doing a probiotic as well. He denies any systemic or localized signs of infection at this time, no new concerns. - Physical Exam Vital Signs Temp Pulse Resp BP 97 F L 88 18 150/88 H 04/01/20 15:18 04/01/20 16:00 04/01/20 16:00 04/01/20 16:00 General: Alert, Oriented x3, Cooperative, No apparent distress HEENT: Atraumatic Oral: Moist Mucosa Neck: Supple Lungs: Clear to auscultation, Normal air movement Cardiovascular: Regular rate, Regular Rhythm, Normal S1, Normal S2 Abdomen: Soft, Non Tender Extremities: No clubbing, No cyanosis, Edema - Generalized lower extremity edema, Peripheral Pulses Normal Skin: Ulcer/ Wound - See nursing documentation, slough and devitalized tissue present, no signs of infection at this time Wound Measurements and Assessment WC - Nurse 1 - General Ulcer Measurement Start: 03/11/20 15:03 Freq: Status: Active Protocol: Activity Type Activity Date Activity User E-Sign Co-Sign Detail Recorded Client Recorded Date Recorded By Document 04/01/20 15:18 DL [id number] 04/01/20 15:24 DL 04/01/20 15:18 Wound Center Nurse 1 [Ulcer Assessment] #1- L HESS (POST TRAUMA) -Current Size (cm) - Length 1 -Current Size (cm) - Width 1.3 -Current Size (cm) - Depth 1 -Total Square Cm 1.3 -Photo Taken No -Exudate Amt Small -Exudate Type Serosanguineous -Wound Margin Distinct, Outline Attached -Granulation Amt None Present (0 %) -Necrosis Amt Large (67-100%) -Necrotic Tissue Type Adherent Slough -Structure Exposed N/A -Texture ([place]-wound Skin Appearance) Scarring -Moisture ([place]-wound Skin Appearance No Abnormality ) -Color ([place]-wound Skin Appearance) No Abnormality -Temperature ([place]-wound Skin No Abnormality Appearance) (Pt Warm) -Tenderness on Palpation ([place]-wound No Skin Appearance) -Ulcer Cleansing Rinsed/ Irrigated with Saline -Foul Odor after Cleansing No -Anesthetic Used 4% Lidocaine Solution [Edema Assessment] -Left Calf (cm) 61.5 -Left Ankle (cm) 31.7 WC - Nurse 2 - General Ulcer CM Notes Start: 03/11/20 15:03 Freq: Status: Active Protocol: Activity Type Activity Date Activity User E-Sign Co-Sign Detail Recorded Client Recorded Date Recorded By Document 04/01/20 15:40 MW [id number] 04/01/20 15:42 MW 04/01/20 15:40 Wound Center Nurse 2 [Procedure/Treatment] #1- L HESS (POST TRAUMA) -Time 15:41 -Correct Patient Yes -Correct Side, Site, Position Yes -Correct Procedure Yes -Procedure Performed Yes -Type of Procedure Debridement -Clinical Debridement Subcutaneous -Tissue Removed Subcutaneous -Post Debridement (cm) - Length 0.8 -Post Debridement (cm) - Width 0.5 -Post Debridement (cm) - Depth 0.7 -Total Square (Post) (cm) 0.40 -Area of Debridement (cm) - Length 0.8 -Area of Debridement (cm) - Width 0.5 -Total Square (Area) (cm) 0.40 -Tunneling No -Undermining/Tunneling No -Circular Undermining No -Wound/Ulcer Outcome Not Healed -Ulcer Cleansing Rinsed/ Irrigated with Saline -Foul Odor after Cleansing No -Bioengineered Tissue No -Bleeding Controlled with Pressure -Offloading No -Treatment Response Procedure Tolerated Well -Debridement - Subq, 1st 20sq cm Yes [See Physician Procedure note for Specifics] Pain Scale: 0-10 Numeric [Pain] -Is Patient Pain Free? Yes - Nurse 3 - General Ulcer D/C NN Start: 03/11/20 15:03 Freq: Status: Active Protocol: Activity Type Activity Date Activity User E-Sign Co-Sign Detail Recorded Client Recorded Date Recorded By Document 04/01/20 16:00 RB [id number] 04/01/20 16:01 RB 04/01/20 16:00 Wound Care Nurse 3 [Wound Dressing] #1- L HESS (POST TRAUMA) -Ulcer Cleansing Wound Cleanser -Foul Odor after Cleansing No -Primary Dressing Applied Promogran Norma Matter -Primary Dressing Covered/Secured Dry Gauze, with Secured with Tape -Promogran Norma Matter 1 [Compression Applied] Left -Other DOUBLE LAYER [Post Procedure Tolerated] -Treatment Response Procedure Tolerated Well Vital Signs [Pulse] -Pulse Rate (60-100) 88 -Pulse Location Monitor [Respirations] -Respiratory Rate (12-18) 18 -Respiratory rate source Observation [Blood Pressure] -Blood Pressure (90/60-120/80) 150/88 H -Blood Pressure Mean (mm Hg) 108 -Source Monitor -Position Semi-Fowlers -Blood Pressure Location Left Arm Pain Scale: 0-10 Numeric [Pain] -Is Patient Pain Free? Yes Teaching: Wound Center [Wound Center Education] (Items with an * have Printed Materials Available- Please identify what is given to patient under the Teaching materials given to patient and caregiver Section. Dressing Your Wound -Person Taught Patient -Teaching Method Discussion, Demonstration -Response to teaching Verbalize understanding WC - Visit Discharge [Visit Discharge Information] -Discharge Condition Stable -Ambulatory Status Ambulatory -Transportation Private Auto -Medication Reconcilliation completed No & provided to patient/care provider -Clinical Summary of Care Provided Yes Musculoskeletal: No Tenderness to Palpation of Joints or Extremities Neurological: Neuro grossly intact Psych/Mental Status: Normal Affect, Appropriate, Alert and oriented to time, place, person, mood and affect Debridement Note Post-Debridement Measurements/Treatment WC - Nurse 2 - General Ulcer CM Notes Start: 03/11/20 15:03 Freq: Status: Active Protocol: Activity Type Activity Date Activity User E-Sign Co-Sign Detail Recorded Client Recorded Date Recorded By Document 03/11/20 15:17 MW [id number] 03/11/20 15:20 MW Document 03/18/20 15:48 MW [id number] 03/18/20 15:51 MW Document 03/25/20 15:39 MW [id number] 03/25/20 15:44 MW Document 04/01/20 15:40 MW [id number] 04/01/20 15:42 MW 03/11/20 03/18/20 03/25/20 15:17 15:48 15:39 Wound Center Nurse 2 #1- L HESS (POST TRAUMA) -Time 15:17 15:50 15:42 -Correct Patient Yes Yes Yes -Correct Side, Site, Position Yes Yes Yes -Correct Procedure Yes Yes Yes -Procedure Performed Yes Yes Yes -Type of Procedure Debridement Debridement Debridement -Clinical Debridement Subcutaneous Subcutaneous Subcutaneous -Tissue Removed Subcutaneous Subcutaneous Subcutaneous -Post Debridement (cm) - Length 1.5 1.1 1.1 -Post Debridement (cm) - Width 1.2 1.0 0.8 -Post Debridement (cm) - Depth 2.0 2.1 1.7 -Total Square (Post) (cm) 1.80 1.10 0.88 -Area of Debridement (cm) - Length 1.5 1.1 1.1 -Area of Debridement (cm) - Width 1.2 1.0 0.8 -Total Square (Area) (cm) 1.80 1.10 0.88 -Tunneling No No No -Undermining/Tunneling No No No -Circular Undermining No No No -Wound/Ulcer Outcome Not Healed Not Healed Not Healed -Ulcer Cleansing Rinsed/ Rinsed/ Rinsed/ Irrigated with Irrigated with Irrigated with Saline Saline Saline -Foul Odor after Cleansing No No No -Bioengineered Tissue No No No -Bleeding Controlled with Pressure Pressure Pressure -Offloading No No No -Treatment Response Procedure Procedure Tolerated Well Tolerated Well -Debridement - Subq, 1st 20sq cm Yes Yes Yes Pain Scale: 0-10 Numeric Is Patient Pain Free? Yes Yes Yes 04/01/20 15:40 Wound Center Nurse 2 #1Jacky HESS (POST TRAUMA) -Time 15:41 -Correct Patient Yes -Correct Side, Site, Position Yes -Correct Procedure Yes -Procedure Performed Yes -Type of Procedure Debridement -Clinical Debridement Subcutaneous -Tissue Removed Subcutaneous -Post Debridement (cm) - Length 0.8 -Post Debridement (cm) - Width 0.5 -Post Debridement (cm) - Depth 0.7 -Total Square (Post) (cm) 0.40 -Area of Debridement (cm) - Length 0.8 -Area of Debridement (cm) - Width 0.5 -Total Square (Area) (cm) 0.40 -Tunneling No -Undermining/Tunneling No -Circular Undermining No -Wound/Ulcer Outcome Not Healed -Ulcer Cleansing Rinsed/ Irrigated with Saline -Foul Odor after Cleansing No -Bioengineered Tissue No -Bleeding Controlled with Pressure -Offloading No -Treatment Response Procedure Tolerated Well -Debridement - Subq, 1st 20sq cm Yes Pain Scale: 0-10 Numeric Is Patient Pain Free? Yes WC - Nurse 3 - General Ulcer D/C NN Start: 03/11/20 15:03 Freq: Status: Active Protocol: Activity Type Activity Date Activity User E-Sign Co-Sign Detail Recorded Client Recorded Date Recorded By Document 03/11/20 15:20 PL [id number] 03/12/20 15:30 PL Document 03/18/20 15:56 RB [id number] 03/18/20 15:59 RB Document 03/25/20 15:55 BMF [id number] 03/25/20 15:56 BMF Document 04/01/20 16:00 RB [id number] 04/01/20 16:01 RB 03/11/20 03/18/20 03/25/20 15:20 15:56 15:55 Wound Care Nurse 3 #1- L HESS (POST TRAUMA) -Ulcer Cleansing Rinsed/ Rinsed/ Rinsed/ Irrigated with Irrigated with Irrigated with Saline Saline Saline -Foul Odor after Cleansing No No -Primary Dressing Applied Aquacel AG 4x4 Aquacel AG 4x4 Aquacel AG 4x4, Other -Other Dressing aquacel rope -Primary Dressing Covered/Secured with Dry Gauze & Dry Gauze, Secured with Roll Gauze, Secured with Tape,Other Secured with Tape Tape -Other Covering abd -Aquacel AG 4x4 1 1 1 -Promogran Norma Matter Left -Tubular Bandage Single Layer Double Layer -Size of Tubigrip Used Size F Size F -Size F ($) 1 2 -Other pt refused application. will apply at home Treatment Response Procedure Procedure Tolerated Well Tolerated Well Pain Scale: 0-10 Numeric Is Patient Pain Free? Yes Yes Yes Vital Signs Pulse Rate (60-100) Pulse Location Respiratory Rate (12-18) Respiratory rate source Blood Pressure (90/60-120/80) Blood Pressure Mean (mm Hg) Source Position Blood Pressure Location Teaching: Wound Center Dressing Your Wound -Person Taught -Teaching Method -Response to teaching WC - Visit Discharge Discharge Condition Stable Stable Stable Ambulatory Status Ambulatory Ambulatory Ambulatory Transportation Private Auto Private Auto Private Auto Medication Reconcilliation completed & No provided to patient/care provider Clinical Summary of Care Provided Yes Yes 04/01/20 16:00 Wound Care Nurse 3 #1- L HESS (POST TRAUMA) -Ulcer Cleansing Wound Cleanser -Foul Odor after Cleansing No -Primary Dressing Applied Promogran Norma Matter -Other Dressing -Primary Dressing Covered/Secured with Dry Gauze, Secured with Tape -Other Covering -Aquacel AG 4x4 -Promogran Norma Matter 1 Left -Tubular Bandage -Size of Tubigrip Used -Size F ($) -Other DOUBLE LAYER Treatment Response Procedure Tolerated Well Pain Scale: 0-10 Numeric Is Patient Pain Free? Yes Vital Signs Pulse Rate (60-100) 88 Pulse Location Monitor Respiratory Rate (12-18) 18 Respiratory rate source Observation Blood Pressure (90/60-120/80) 150/88 H Blood Pressure Mean (mm Hg) 108 Source Monitor Position Semi-Fowlers Blood Pressure Location Left Arm Teaching: Wound Center Dressing Your Wound -Person Taught Patient -Teaching Method Discussion, Demonstration -Response to teaching Verbalize understanding WC - Visit Discharge Discharge Condition Stable Ambulatory Status Ambulatory Transportation Private Auto Medication Reconcilliation completed & No provided to patient/care provider Clinical Summary of Care Provided Yes Wound debrided: Left lower extremity puncture traumatic wound Laterality: Left Type of Debridement: Excisional debridement Anesthesia Used: 5% Lidocaine Gel Depth: in the subcutaneous layer Percentage of wound debrided: 100 Instrument Used: 5mm curette Tissue Removed: Slough and devitalized tissue Severity: Fat Layer Exposed Amount of bleeding with debridement: Mild Bleeding Controlled with: Pressure Patient tolerated procedure well Assessment/Plan Active Problems Traumatic open wound of left lower leg with delayed healing (Acute) Secondary to puncture wound Obesity (Acute) Bipolar disorder (Chronic) MRSA (methicillin resistant Staphylococcus aureus) infection (Acute) Assessment: see above diagnoses Plan: The patient was seen and examined at the wound center today and was updated on the plan of care. A subcutaneous debridement was performed today. The patient tolerated the procedure well. The patients wound care will consist of:packing with Moistened Norma daily and cover with gauze. Recent wound cultures were reviewed and negative, patient tolerating clindamycin well and cellulitis has resolved.. Baseline bloodwork and xray ordered prior, will request [facility] records. Wound cultures were reexamined and showed MRSA and Streptococcus, patient tolerating the clindamycin well which is sensitive to the bacteria. X-ray was normal. Cellulitis seems to be improving. Blood work did show low prealbumin and advised on the importance of protein supplementation. Vascular studies held. Patient educated on the importance of diet on wound healing and instructed to increase protein and vitamin C intake. Patient verbalized understanding. Given the delayed wound healing greater than 4 weeks now, will apply for an skin substitute as well. Patient will follow up at wound healing center in one week or sooner if needed. This note was generated with [employer] dictation software. It may contain incorrect words, spelling, and punctuation that were not noted in checking the note before signing. [id number]: [id number] Charissa subq tissue 20 sq cm/<
== END 2020-04-07 23:59 ==
LOC: WC 15:15
PROVIDERS: PCP Family Medicine; Visit Provider Nurse Practitioner Family
DX: S81.802A Unspecified open wound, left lower leg, initial encounter (principal); S81.832A Puncture wound without foreign body, left lower leg, initial encounter; L03.116 Cellulitis of left lower limb; B95.62 Methicillin resistant Staphylococcus aureus infection as the cause of diseases classified elsewhere; W22.8XXA Striking against or struck by other objects, initial encounter; Y93.9 Activity, unspecified; Y92.9 Unspecified place or not applicable; Y99.9 Unspecified external cause status; R60.0 Localized edema; F31.9 Bipolar disorder, unspecified; E66.9 Obesity, unspecified; Z79.899 Other long term (current) drug therapy
CPT/HCPCS: 11042; 87070; 87075; 87077; 87205

== ENCOUNTER 2020-05-06 13:45 | Outpatient (RCR) | payer BC, SELFPAY ==
[2020-04-08 00:39] VITALS: BP 150/88; PULSE 88; RESP 18; TEMP 36.1
[2020-04-08 15:30] VITALS: BP 154/97; PULSE 103; RESP 18; TEMP 36.1; BMI 46.8
--- NOTE | 2020-04-08 15:55 | PN.PCM_ITS ---
(1) Traumatic open wound of left lower leg with delayed healing Status: Acute Current Visit: Yes Code(s): S81.802D - Unspecified open wound, left lower leg, subsequent encounter Comment: Secondary to puncture wound (2) Bilateral lower extremity edema Status: Acute Current Visit: Yes Code(s): R60.0 - Localized edema (3) MRSA (methicillin resistant Staphylococcus aureus) infection Status: Acute Current Visit: No Code(s): A49.02 - Methicillin resistant Staphylococcus aureus infection, unspecified site (4) Obesity Status: Acute Current Visit: No Code(s): E66.9 - Obesity, unspecified (5) Bipolar disorder Status: Chronic Current Visit: No Code(s): F31.9 - Bipolar disorder, unspecified Type of Wound Date of Service: 04/08/20 Chief Complaint: Wound to left lower extremity x4 weeks History of Wound: This is a 19 year old white male who presents to the wound healing center today for a traumatic wound to his left lower extremity. He has a past medical history as listed above. On 01/27/2020 the patient had a traumatic injury to his left hess where he hit it on a industrial dump bucket. He went to the emergency department on the and an x-ray was done at [facility] and was said to be negative. He was placed on both Keflex and Cipro. He states that he finished the ciprofloxacin yesterday. For wound care he has been utilizing iodine and gauze change it daily. He states that the site is not healing. He denies any significant drainage. He denies any significant pain. He denies any other acute concerns. All other systems reviewed and negative with exception of those listed above. Progress of Wound: 03/04/2020?patient reports an increase in pain to the wound, most recent cultures were reviewed and negative, he does also note increased s urrounding warmth and redness. Given the concern for cellulitis and depth of 6.5 cm will check a x-ray and also treat empirically with Augmentin. Discussed with patient and mother that if any symptoms worsen or he develops any systemic signs of infection such as fever, chills,worsening pain, or body aches that he should go to the emergency department immediately. 03/11/2020?patient's prior cultures were reviewed and showed MRSA and Streptococcus, patient was previously started on clindamycin based on the sensitivity. Patient did also have 2 ER visits since his last appointment due to concern for worsening cellulitis, blood work was done which showed white count trending to normalization and also he had blood cultures done which were normal. Cellulitis seems to be resolving, no new concerns. 03/18/2020?patient cellulitis seems to be completely resolved, wound is making improvement, no new Concerns. 03/25/2020?patient cellulitis seems to be returned and small area around the wound outlined, wound is making improvement, will place patient back on clindamycin which was susceptible to his prior culture. He denies any systemic or localized signs of infection at this time. 04/01/2020?cellulitis is improved, recent cultures were reviewed and negative, patient tolerating the clindamycin well and doing a probiotic as well. He denies any systemic or localized signs of infection at this time, no new concerns. 04/08/20- no new concerns, having delayed healing, continues with lower extremity edema - Physical Exam Vital Signs Temp Pulse Resp BP 97 F L 103 H 18 154/97 H 04/08/20 15:30 04/08/20 15:30 04/08/20 15:30 04/08/20 15:30 General: Alert, Oriented x3, Cooperative, No apparent distress HEENT: Atraumatic Oral: Moist Mucosa Neck: Supple Lungs: Clear to auscultation, Normal air movement Cardiovascular: Regular rate, Regular Rhythm Abdomen: Soft, Non Tender Extremities: No clubbing, No cyanosis, Edema - generalized BLLE edema, Peripheral Pulses Normal Skin: Ulcer/ Wound - see nursing documentation, slough and devitalized tissue, no signs of infection at this time Wound Measurements and Assessment WC - Nurse 1 - General Ulcer Measurement Start: 04/08/20 15:30 Freq: Status: Active Protocol: Activity Type Activity Date Activity User E-Sign Co-Sign Detail Recorded Client Recorded Date Recorded By Document 04/08/20 15:30 RB [id number] 04/08/20 15:32 RB 04/08/20 15:30 Wound Center Nurse 1 [Ulcer Assessment] #1- L HESS (POST TRAUMA) -Combined with other wound No -Current Size (cm) - Length 0.6 -Current Size (cm) - Width 0.5 -Current Size (cm) - Depth 0.4 -Total Square Cm 0.30 -Tunneling No -Undermining/Tunneling No -Circular Undermining No -Exudate Amt Small -Exudate Type Serosanguineous -Wound Margin Flat & Intact -Granulation Amt Medium (34-66%) -Granulation Quality [place] -Slough/Fibrin Yes -Necrosis Amt Medium (34-66%) -Necrotic Tissue Type Adherent Slough -Structure Exposed N/A -Texture ([place]-wound Skin Appearance) Assessed -Moisture ([place]-wound Skin Appearance Dry/Scaly ) -Color ([place]-wound Skin Appearance) Assessed -Temperature ([place]-wound Skin No Abnormality Appearance) (Pt Warm) -Tenderness on Palpation ([place]-wound No Skin Appearance) -Ulcer Cleansing Wound Cleanser -Foul Odor after Cleansing No -Anesthetic Used 4% Lidocaine Solution [Edema Assessment] -Lower Limb Edema Present Yes -Left Calf (cm) 59.5 -Left Ankle (cm) 32.5 WC - Nurse 2 - General Ulcer CM Notes Start: 04/08/20 15:30 Freq: Status: Active Protocol: Activity Type Activity Date Activity User E-Sign Co-Sign Detail Recorded Client Recorded Date Recorded By Document 04/08/20 15:38 MW [id number] 04/08/20 15:39 MW 04/08/20 15:38 Wound Center Nurse 2 [Procedure/Treatment] #1- L HESS (POST TRAUMA) -Time 15:39 -Correct Patient Yes -Correct Side, Site, Position Yes -Correct Procedure Yes -Procedure Performed Yes -Type of Procedure Debridement -Clinical Debridement Subcutaneous -Tissue Removed Subcutaneous -Post Debridement (cm) - Length 0.7 -Post Debridement (cm) - Width 0.5 -Post Debridement (cm) - Depth 0.5 -Total Square (Post) (cm) 0.35 -Area of Debridement (cm) - Length 0.7 -Area of Debridement (cm) - Width 0.5 -Total Square (Area) (cm) 0.35 -Tunneling No -Undermining/Tunneling No -Circular Undermining No -Wound/Ulcer Outcome Not Healed -Ulcer Cleansing Rinsed/ Irrigated with Saline -Foul Odor after Cleansing No -Bioengineered Tissue No -Bleeding Controlled with Pressure -Offloading No -Debridement - Subq, 1st 20sq cm Yes [See Physician Procedure note for Specifics] Pain Scale: 0-10 Numeric [Pain] -Is Patient Pain Free? Yes WC - Nurse 3 - General Ulcer D/C NN Start: 04/08/20 15:30 Freq: Status: Active Protocol: Activity Type Activity Date Activity User E-Sign Co-Sign Detail Recorded Client Recorded Date Recorded By Document 04/08/20 15:42 MW [id number] 04/08/20 15:43 MW 04/08/20 15:42 Wound Care Nurse 3 [Wound Dressing] #1- L HESS (POST TRAUMA) -Ulcer Cleansing Rinsed/ Irrigated with Saline -Foul Odor after Cleansing No -Negative Pressure Wound Therapy N/A -Primary Dressing Applied Promogran Norma Matter -Primary Dressing Covered/Secured Dry Gauze, with Secured with Tape -Promogran Norma Matter 1 [Post Procedure Tolerated] -Treatment Response Procedure Tolerated Well Teaching: Wound Center [Wound Center Education] (Items with an * have Printed Materials Available- Please identify what is given to patient under the Teaching materials given to patient and caregiver Section. Dressing Your Wound -Person Taught Patient -Teaching Method Discussion -Response to teaching Verbalize understanding - Visit Discharge [Visit Discharge Information] -Discharge Condition Stable -Ambulatory Status Ambulatory -Transportation Private Auto -Accompanied by self -Medication Reconcilliation completed No & provided to patient/care provider -Clinical Summary of Care Provided Yes Musculoskeletal: No Tenderness to Palpation of Joints or Extremities, No Muscle Wasting Neurological: Neuro grossly intact Psych/Mental Status: Normal Affect, Appropriate, Alert and oriented to time, place, person, mood and affect Debridement Note Post-Debridement Measurements/Treatment - Nurse 2 - General Ulcer CM Notes Start: 04/08/20 15:30 Freq: Status: Active Protocol: Activity Type Activity Date Activity User E-Sign Co-Sign Detail Recorded Client Recorded Date Recorded By Document 04/08/20 15:38 MW [id number] 04/08/20 15:39 MW 04/08/20 15:38 Wound Center Nurse 2 #1- L HESS (POST TRAUMA) -Time 15:39 -Correct Patient Yes -Correct Side, Site, Position Yes -Correct Procedure Yes -Procedure Performed Yes -Type of Procedure Debridement -Clinical Debridement Subcutaneous -Tissue Removed Subcutaneous -Post Debridement (cm) - Length 0.7 -Post Debridement (cm) - Width 0.5 -Post Debridement (cm) - Depth 0.5 -Total Square (Post) (cm) 0.35 -Area of Debridement (cm) - Length 0.7 -Area of Debridement (cm) - Width 0.5 -Total Square (Area) (cm) 0.35 -Tunneling No -Undermining/Tunneling No -Circular Undermining No -Wound/Ulcer Outcome Not Healed -Ulcer Cleansing Rinsed/ Irrigated with Saline -Foul Odor after Cleansing No -Bioengineered Tissue No -Bleeding Controlled with Pressure -Offloading No -Debridement - Subq, 1st 20sq cm Yes Pain Scale: 0-10 Numeric Is Patient Pain Free? Yes WC - Nurse 3 - General Ulcer D/C NN Start: 04/08/20 15:30 Freq: Status: Active Protocol: Activity Type Activity Date Activity User E-Sign Co-Sign Detail Recorded Client Recorded Date Recorded By Document 04/08/20 15:42 MW [id number] 04/08/20 15:43 MW 04/08/20 15:42 Wound Care Nurse 3 #1- L HESS (POST TRAUMA) -Ulcer Cleansing Rinsed/ Irrigated with Saline -Foul Odor after Cleansing No -Negative Pressure Wound Therapy N/A -Primary Dressing Applied Promogran Norma Matter -Primary Dressing Covered/Secured with Dry Gauze, Secured with Tape -Promogran Norma Matter 1 Treatment Response Procedure Tolerated Well Teaching: Wound Center Dressing Your Wound -Person Taught Patient -Teaching Method Discussion -Response to teaching Verbalize understanding WC - Visit Discharge Discharge Condition Stable Ambulatory Status Ambulatory Transportation Private Auto Accompanied by self Medication Reconcilliation completed & No provided to patient/care provider Clinical Summary of Care Provided Yes Wound debrided: left lower extremity wound with edema Laterality: Left Type of Debridement: Excisional debridement Anesthesia Used: 5% Lidocaine Gel Depth: Down to and including healthy tissue, in the subcutaneous layer Percentage of wound debrided: 100 Instrument Used: 5mm curette Tissue Removed: slough and devitalized tissue Severity: Fat Layer Exposed Amount of bleeding with debridement: Mild Bleeding Controlled with: Pressure Patient tolerated procedure well Assessment/Plan Active Problems Traumatic open wound of left lower leg with delayed healing (Acute) Secondary to puncture wound Bilateral lower extremity edema (Acute) Assessment: see above diagnoses Plan: The patient was seen and examined at the wound center today and was updated on the plan of care. A subcutaneous debridement was performed today. The patient tolerated the procedure well. The patients wound care will consist of:packing with Moistened Norma daily and cover with gauze. Recent wound cultures were reviewed and negative, patient tolerating clindamycin well and cellulitis has resolved.. Baseline bloodwork and xray ordered prior, will request [facility] records. Wound cultures were reexamined and showed MRSA and Streptococcus, patient completed the clindamycin well which is sensitive to the bacteria. X-ray was normal. Cellulitis seems to be improving. Blood work did show low prealbumin and advised on the importance of protein supplementation. Vascular studies held. Patient educated on the importance of diet on wound healing and instructed to increase protein and vitamin C intake. Patient verbalized understanding. Given the delayed wound healing greater than 4 weeks now, will apply for an skin substitute as well. Patient will follow up at wound healing center in one week or sooner if needed. This note was generated with [employer] dictation software. It may contain incorrect words, spelling, and punctuation that were not noted in checking the note before signing. [id number]: [id number] Charissa subq tissue 20 sq cm/<
[2020-04-22 15:35] VITALS: BP 161/79; PULSE 102; TEMP 36; BMI 46.8
--- NOTE | 2020-04-27 11:56 | PCM.WC.PN ---
(1) Traumatic open wound of left lower leg with delayed healing Status: Acute Code(s): S81.802D - Unspecified open wound, left lower leg, subsequent encounter Comment: Secondary to puncture wound (2) Bilateral lower extremity edema Status: Acute Code(s): R60.0 - Localized edema (3) MRSA (methicillin resistant Staphylococcus aureus) infection Status: Acute Code(s): A49.02 - Methicillin resistant Staphylococcus aureus infection, unspecified site (4) Obesity Status: Acute Code(s): E66.9 - Obesity, unspecified (5) Bipolar disorder Status: Chronic Code(s): F31.9 - Bipolar disorder, unspecified Type of Wound Date of Service: 04/22/20 Chief Complaint: Wound to left lower extremity x4 weeks History of Wound: This is a 19 year old white male who presents to the wound healing center today for a traumatic wound to his left lower extremity. He has a past medical history as listed above. On 01/27/2020 the patient had a traumatic injury to his left hess where he hit it on a industrial dump bucket. He went to the emergency department on the and an x-ray was done at [facility] and was said to be negative. He was placed on both Keflex and Cipro. He states that he finished the ciprofloxacin yesterday. For wound care he has been utilizing iodine and gauze change it daily. He states that the site is not healing. He denies any significant drainage. He denies any significant pain. He denies any other acute concerns. All other systems reviewed and negative with exception of those listed above. Progress of Wound: 03/04/2020?patient reports an increase in pain to the wound, most recent cultures were reviewed and negative, he does also note increased surrounding warmth and redness. Given the concern for cellulitis and depth of 6.5 cm will check a x-ray and also treat empirically with Augmentin. Discussed with patient and mother that if any symptoms worsen or he develops any systemic signs of infection such as fever, chills,worsening pain, or body aches that he should go to the emergency department immediately. 03/11/2020?patient's prior cultures were reviewed and showed MRSA and Streptococcus, patient was previously started on clindamycin based on the sensitivity. Patient did also have 2 ER visits since his last appointment due to concern for worsening cellulitis, blood work was done which showed white count trending to normalization and also he had blood cultures done which were normal. Cellulitis seems to be resolving, no new concerns. 03/18/2020?patient cellulitis seems to be completely resolved, wound is making improvement, no new Concerns. 03/25/2020?patient cellulitis seems to be returned and small area around the wound outlined, wound is making improvement, will place patient back on clindamycin which was susceptible to his prior culture. He denies any systemic or localized signs of infection at this time. 04/01/2020?cellulitis is improved, recent cultures were reviewed and negative, patient tolerating the clindamycin well and doing a probiotic as well. He denies any systemic or localized signs of infection at this time, no new concerns. 04/08/20- no new concerns, having delayed healing, continues with lower extremity edema. 04/22/20- no new concerns, having delayed healing, continues with lower extremity edema - Physical Exam Vital Signs Temp Pulse Resp BP 96.8 F L 102 H 18 161/79 H 04/22/20 15:35 04/22/20 15:35 04/08/20 15:30 04/22/20 15:35 General: Alert, Oriented x3, Cooperative, No apparent distress HEENT: Atraumatic Oral: Moist Mucosa Lungs: Clear to auscultation, Normal air movement Cardiovascular: Regular rate Abdomen: Soft, Non Tender Extremities: No clubbing, No cyanosis, Edema - Generalized bilateral lower extremity edema Skin: Ulcer/ Wound - See nursing documentation, slough and devitalized tissue, no signs of obvious infection at this time Neurological: Neuro grossly intact Psych/Mental Status: Normal Affect, Appropriate, Alert and oriented to time, place, person, mood and affect Debridement Note Post-Debridement Measurements/Treatment WC - Nurse 2 - General Ulcer CM Notes Start: 04/08/20 15:30 Freq: Status: Active Protocol: Activity Type Activity Date Activity User E-Sign Co-Sign Detail Recorded Client Recorded Date Recorded By Document 04/08/20 15:38 MW [id number] 04/08/20 15:39 MW Document 04/22/20 15:52 MW [id number] 04/22/20 15:56 MW 04/08/20 04/22/20 15:38 15:52 Wound Center Nurse 2 #1- L HESS (POST TRAUMA) -Time 15:39 15:53 -Correct Patient Yes Yes -Correct Side, Site, Position Yes Yes -Correct Procedure Yes Yes -Procedure Performed Yes Yes -Type of Procedure Debridement Debridement -Clinical Debridement Subcutaneous Subcutaneous -Tissue Removed Subcutaneous Subcutaneous -Post Debridement (cm) - Length 0.7 0.7 -Post Debridement (cm) - Width 0.5 0.5 -Post Debridement (cm) - Depth 0.5 0.3 -Total Square (Post) (cm) 0.35 0.35 -Area of Debridement (cm) - Length 0.7 0.7 -Area of Debridement (cm) - Width 0.5 0.5 -Total Square (Area) (cm) 0.35 0.35 -Tunneling No No -Undermining/Tunneling No No -Circular Undermining No No -Wound/Ulcer Outcome Not Healed Not Healed -Ulcer Cleansing Rinsed/ Rinsed/ Irrigated with Irrigated with Saline Saline -Foul Odor after Cleansing No No -Bioengineered Tissue No No -Bleeding Controlled with Pressure Pressure -Offloading No No -Debridement - Subq, 1st 20sq cm Yes Yes Pain Scale: 0-10 Numeric Is Patient Pain Free? Yes Yes - Nurse 3 - General Ulcer D/C NN Start: 04/08/20 15:30 Freq: Status: Active Protocol: Activity Type Activity Date Activity User E-Sign Co-Sign Detail Recorded Client Recorded Date Recorded By Document 04/08/20 15:42 MW [id number] 04/08/20 15:43 MW Document 04/22/20 15:56 MW [id number] 04/22/20 15:57 MW 04/08/20 04/22/20 15:42 15:56 Wound Care Nurse 3 #1- L HESS (POST TRAUMA) -Ulcer Cleansing Rinsed/ Rinsed/ Irrigated with Irrigated with Saline Saline -Foul Odor after Cleansing No No -Negative Pressure Wound Therapy N/A N/A -Primary Dressing Applied Promogran Promogran Norma Matter Norma Matter -Primary Dressing Covered/Secured with Dry Gauze, Dry Gauze, Secured with Secured with Tape Tape -Promogran Norma Matter 1 1 Treatment Response Procedure Procedure Tolerated Well Tolerated Well Pain Scale: 0-10 Numeric Is Patient Pain Free? Yes Teaching: Wound Center Dressing Your Wound -Person Taught Patient Patient -Teaching Method Discussion Discussion -Response to teaching Verbalize Verbalize understanding understanding WC - Visit Discharge Discharge Condition Stable Stable Ambulatory Status Ambulatory Ambulatory Transportation Private Auto Private Auto Accompanied by self SELF Medication Reconcilliation completed & No No provided to patient/care provider Clinical Summary of Care Provided Yes Yes Wound debrided: Left lower extremity nonhealing wound Laterality: Left Type of Debridement: Excisional debridement Anesthesia Used: 5% Lidocaine Gel Depth: in the subcutaneous layer Percentage of wound debrided: 100 Instrument Used: 3mm curette Tissue Removed: Slough and devitalized tissue Severity: Fat Layer Exposed Amount of bleeding with debridement: Mild Bleeding Controlled with: Pressure Patient tolerated procedure well Assessment/Plan Active Problems Bilateral lower extremity edema (Acute) Assessment: see above diagnoses Plan: The patient was seen and examined at the wound center today and was updated on the plan of care. A subcutaneous debridement was performed today. The patient tolerated the procedure well. The patients wound care will consist of:Cover with Moistened Norma daily and cover with gauze. Recent wound cultures were reviewed and negative, patient tolerating clindamycin well and cellulitis has resolved.. Baseline bloodwork and xray ordered prior, will request [facility] records. Wound cultures were reexamined and showed MRSA and Streptococcus, patient completed the clindamycin well which is sensitive to the bacteria. X-ray was normal. Cellulitis seems to be improving. Blood work did show low prealbumin and advised on the importance of protein supplementation. Vascular studies held. Patient educated on the importance of diet on wound healing and instructed to increase protein and vitamin C intake. Patient verbalized understanding. Given the delayed wound healing greater than 4 weeks now, will apply for an skin substitute as well. Patient will follow up at wound healing center in one week or sooner if needed. This note was generated with [employer] dictation software. It may contain incorrect words, spelling, and punctuation that were not noted in checking the note before signing. [id number]: [id number] Charissa subq tissue 20 sq cm/<
[2020-05-06 13:57] VITALS: BP 161/88; PULSE 87; RESP 18; TEMP 35.6; BMI 46.8
--- NOTE | 2020-05-06 14:35 | PCM.WC.HP ---
(1) Bilateral lower extremity edema Status: Chronic Code(s): R60.0 - Localized edema (2) Obesity Status: Chronic Qualifiers: Obesity classification: adult class 3 (BMI >= 40) Serious obesity comorbidity presence: without serious comorbidity Code(s): E66.9 - Obesity, unspecified (3) Traumatic open wound of left lower leg with delayed healing Status: Chronic Code(s): S81.802D - Unspecified open wound, left lower leg, subsequent encounter Comment: Secondary to puncture wound (4) Bipolar disorder Status: Chronic Code(s): F31.9 - Bipolar disorder, unspecified History of Present Illness Date of Service: 05/06/20 Chief Complaint: Wound to left lower extremity History of Wound: This is a 19 year old white male who [facility] with a traumatic wound to his left tear tibial surface. He has a past medical history as documented within. On 01/27/2020 the patient had a traumatic injury to his left hess where he hit it on a industrial dump bucket. He went to the Emergency Department on the and an x-ray was done at [facility] and was said to be negative. He was placed on both Keflex and Cipro. For wound care he had been utilizing iodine and gauze change it daily. He stated that the site was not healing. He denied any significant drainage. He denied any significant pain. He denied any other acute concerns. All other systems reviewed and negative with exception of those listed above. Past Medical History Past Medical History: Chronic Problems Traumatic open wound of left lower leg with delayed healing (Chronic) Secondary to puncture wound Obesity (Chronic) Bipolar disorder (Chronic) Bilateral lower extremity edema (Chronic) Allergies/Adverse Reactions: Allergies No Known Allergies Allergy (Verified 02/26/20 14:06) Home Medications: Ambulatory Orders Medication Instructions Recorded Carbamazepine [Tegretol] 200 mg PO QHS 02/26/20 clindamycin HCl 300 mg capsule 300 mg PO TID #30 cap 03/07/20 Smoking Status: Current every day smoker Tobacco Use: Cigarettes Review of Systems Constitutional: Denies: Chills, Fever, Weight Change Eyes: Denies: Pain, Vision Change HEENT: Denies: Difficulty Hearing, Difficulty Swallowing, Sinus Congestion Cardiovascular: Denies: Chest Pain, Palpitations Respiratory: Denies: Cough, Shortness of Breath Gastrointestinal: Denies: Diarrhea, Nausea, Vomiting Genitourinary: Denies: Dysuria, Hematuria Endocrine: Denies: Heat/ Cold Intolerance, Polydipsia, Polyuria Hematologic/ Lymphatic: Denies: Easy Bruising, Easy Bleeding - Physical Exam Vital Signs Temp Pulse Resp BP 96.1 F L 87 18 161/88 H 05/06/20 13:57 05/06/20 13:57 05/06/20 13:57 05/06/20 13:57 General: Alert, Oriented x3, Cooperative, No apparent distress, Well developed, Well nourished, - - The patient is morbidly obese HEENT: Atraumatic, PERRLA, EOMI, Normocephalic Oral: Moist Mucosa Neck: No JVD Lungs: Normal air movement Abdomen: Non-Distended, Obese Extremities: No clubbing, No cyanosis, No Calf Tenderness, - - Mild swelling and edema are noted in the lower extremities bilaterally, without significant chronic skin changes. Addt'l Wound Findings: There is a superficial wound on the left anterior tibial surface. It appears nearly healed. There is evidence of peripheral epithelialization. Dimensions are documented elsewhere. There is no sign of infection or cellulitis. Skin: No rashes Wound Measurements and Assessment WC - Nurse 1 - General Ulcer Measurement Start: 04/08/20 15:30 Freq: Status: Active Protocol: Activity Type Activity Date Activity User E-Sign Co-Sign Detail Recorded Client Recorded Date Recorded By Document 05/06/20 13:57 RB [id number] 05/06/20 13:59 RB 05/06/20 13:57 Wound Center Nurse 1 [Ulcer Assessment] #1- L HESS (POST TRAUMA) -Combined with other wound No -Current Size (cm) - Length 0.1 -Current Size (cm) - Width 0.1 -Current Size (cm) - Depth 0.1 -Total Square Cm 0.01 -Epithelialization Large 67-100% -Tunneling No -Undermining/Tunneling No -Circular Undermining No -Exudate Amt None Present -Wound Margin Flat & Intact -Granulation Amt Large (67-100%) -Granulation Quality Congress -Slough/Fibrin No -Necrosis Amt None Present (0 %) -Structure Exposed N/A -Texture ([place]-wound Skin Appearance) Assessed, Scarring -Moisture ([place]-wound Skin Appearance Assessed ) -Color ([place]-wound Skin Appearance) Assessed -Temperature ([place]-wound Skin No Abnormality Appearance) (Pt Warm) -Tenderness on Palpation ([place]-wound No Skin Appearance) -Ulcer Cleansing Rinsed/ Irrigated with Saline -Foul Odor after Cleansing No -Anesthetic Used 4% Lidocaine Solution [Edema Assessment] -Lower Limb Edema Present Yes -Left Calf (cm) 64 -Left Ankle (cm) 31.5 Musculoskeletal: No Muscle Wasting Neurological: Cranial nerves II-XII grossly intact, Neuro grossly intact Psych/Mental Status: Normal Affect, Appropriate, Alert and oriented to time, place, person, mood and affect Debridement Note Post-Debridement Measurements/Treatment WC - Nurse 2 - General Ulcer CM Notes Start: 04/08/20 15:30 Freq: Status: Active Protocol: Activity Type Activity Date Activity User E-Sign Co-Sign Detail Recorded Client Recorded Date Recorded By Document 04/08/20 15:38 MW [id number] 04/08/20 15:39 MW Document 04/22/20 15:52 MW [id number] 04/22/20 15:56 MW 04/08/20 04/22/20 15:38 15:52 Wound Center Nurse 2 #1- Maicol HESS (POST TRAUMA) -Time 15:39 15:53 -Correct Patient Yes Yes -Correct Side, Site, Position Yes Yes -Correct Procedure Yes Yes -Procedure Performed Yes Yes -Type of Procedure Debridement Debridement -Clinical Debridement Subcutaneous Subcutaneous -Tissue Removed Subcutaneous Subcutaneous -Post Debridement (cm) - Length 0.7 0.7 -Post Debridement (cm) - Width 0.5 0.5 -Post Debridement (cm) - Depth 0.5 0.3 -Total Square (Post) (cm) 0.35 0.35 -Area of Debridement (cm) - Length 0.7 0.7 -Area of Debridement (cm) - Width 0.5 0.5 -Total Square (Area) (cm) 0.35 0.35 -Tunneling No No -Undermining/Tunneling No No -Circular Undermining No No -Wound/Ulcer Outcome Not Healed Not Healed -Ulcer Cleansing Rinsed/ Rinsed/ Irrigated with Irrigated with Saline Saline -Foul Odor after Cleansing No No -Bioengineered Tissue No No -Bleeding Controlled with Pressure Pressure -Offloading No No -Debridement - Subq, 1st 20sq cm Yes Yes Pain Scale: 0-10 Numeric Is Patient Pain Free? Yes Yes - Nurse 3 - General Ulcer D/C NN Start: 04/08/20 15:30 Freq: Status: Active Protocol: Activity Type Activity Date Activity User E-Sign Co-Sign Detail Recorded Client Recorded Date Recorded By Document 04/08/20 15:42 MW [id number] 04/08/20 15:43 MW Document 04/22/20 15:56 MW [id number] 04/22/20 15:57 MW 04/08/20 04/22/20 15:42 15:56 Wound Care Nurse 3 #1- L HESS (POST TRAUMA) -Ulcer Cleansing Rinsed/ Rinsed/ Irrigated with Irrigated with Saline Saline -Foul Odor after Cleansing No No -Negative Pressure Wound Therapy N/A N/A -Primary Dressing Applied Promogran Promogran Norma Matter Norma Matter -Primary Dressing Covered/Secured with Dry Gauze, Dry Gauze, Secured with Secured with Tape Tape -Promogran Norma Matter 1 1 Treatment Response Procedure Procedure Tolerated Well Tolerated Well Pain Scale: 0-10 Numeric Is Patient Pain Free? Yes Teaching: Wound Center Dressing Your Wound -Person Taught Patient Patient -Teaching Method Discussion Discussion -Response to teaching Verbalize Verbalize understanding understanding WC - Visit Discharge Discharge Condition Stable Stable Ambulatory Status Ambulatory Ambulatory Transportation Private Auto Private Auto Accompanied by self SELF Medication Reconcilliation completed & No No provided to patient/care provider Clinical Summary of Care Provided Yes Yes No debridement was completed today Assessment/Plan Active Problems Traumatic open wound of left lower leg with delayed healing (Chronic) Secondary to puncture wound Obesity (Chronic) Bipolar disorder (Chronic) MRSA (methicillin resistant Staphylococcus aureus) infection (Acute) Bilateral lower extremity edema (Chronic) Assessment: This is a 19-year-old morbidly obese white male with a traumatic wound on the left anterior tibial surface. It appears to be now nearly completely healed. Completion of healing would be anticipated within the next 7 to 14 days. Plan: The patient was seen and examined at the Wound Center today and was updated on the plan of care. Recent wound cultures were reviewed and negative. The patient has completed his oral antibiotics, and cellulitis has resolved. X-ray was normal. Blood work did show low prealbumin and advised on the importance of protein supplementation. Patient educated on the importance of diet on wound healing and instructed to increase protein and vitamin C intake. The left lower extremity wound appears to be healing appropriately, we are to transition to the use of collagen hydrogel topically on a daily basis. Patient will follow [facility] in one week with Giovanni De Los Santos, nurse practitioner. It is anticipated that the patient's left lower extremity traumatic wound will be healed in the near future. Influenza vaccine was not administered today. The patient weighs 375 pounds. He stands 6 feet 4 inches tall. His BMI is 45.6, which places him in a class III obesity category. Weight loss has been recommended, and the patient has been advised to collaborate with his primary care physician in this regard.
== END 2020-05-08 23:59 ==
LOC: WC 13:45
PROVIDERS: PCP Family Medicine; Visit Provider Nurse Practitioner Family
DX: S81.802D Unspecified open wound, left lower leg, subsequent encounter (principal); R60.0 Localized edema; A49.02 Methicillin resistant Staphylococcus aureus infection, unspecified site; E66.01 Morbid (severe) obesity due to excess calories; F31.9 Bipolar disorder, unspecified; F17.210 Nicotine dependence, cigarettes, uncomplicated; Z68.42 Body mass index [BMI] 45.0-49.9, adult
CPT/HCPCS: 11042; 99212; G0463

== ENCOUNTER 2020-05-13 14:32 | Outpatient (RCR) | payer BC, SELFPAY ==
[2020-05-09 00:25] VITALS: BP 161/88; PULSE 87; RESP 18; TEMP 35.6
--- NOTE | 2020-05-13 15:50 | PN.PCM_ITS ---
(1) Traumatic open wound of left lower leg with delayed healing Status: Chronic Code(s): S81.802D - Unspecified open wound, left lower leg, subsequent encounter Comment: Secondary to puncture wound (2) MRSA (methicillin resistant Staphylococcus aureus) infection Status: Acute Code(s): A49.02 - Methicillin resistant Staphylococcus aureus infection, unspecified site (3) Bilateral lower extremity edema Status: Chronic Code(s): R60.0 - Localized edema (4) Obesity Status: Chronic Code(s): E66.9 - Obesity, unspecified Type of Wound Date of Service: 05/13/20 Chief Complaint: Wound to left lower extremity History of Wound: This is a 19 year old white male who presented [facility] with a traumatic wound to his left tear tibial surface. He has a past medical history as documented within. On 01/27/2020 the patient had a traumatic injury to his left hess where he hit it on a industrial dump bucket. He went to the Emergency Department on the and an x-ray was done at [facility] and was said to be negative. He was placed on both Keflex and Cipro. For wound care he had been utilizing iodine and gauze change it daily. He stated that the site was not healing. He denied any significant drainage. He denied any significant pain. He denied any other acute concerns. All other systems reviewed and negative with exception of those listed above. Progress of Wound: 03/04/2020?patient reports an increase in pain to the wound, most recent cultures were reviewed and negative, he does also note increased surrounding warmth and redness. Given the concern for cellulitis and depth of 6.5 cm will check a x-ray and also treat empirically with Augmentin. Discussed with patient and mother that if any symptoms worsen or he develops any systemic signs of infection such as fever, chills,worsening pain, or body aches that he should go to the emergency department immediately. 03/11/2020?patient's prior cultures were reviewed and showed MRSA and Streptococcus, patient was previously started on clindamycin based on the sensitivity. Patient did also have 2 ER visits since his last appointment due to concern for worsening cellulitis, blood work was done which showed white count trending to normalization and also he had blood cultures done which were normal. Cellulitis seems to be resolving, no new concerns. 03/18/2020?patient cellulitis seems to be completely resolved, wound is making improvement, no new Concerns. 03/25/2020?patient cellulitis seems to be returned and small area around the wound outlined, wound is making improvement, will place patient back on clindamycin which was susceptible to his prior culture. He denies any systemic or localized signs of infection at this time. 04/01/2020?cellulitis is improved, recent cultures were reviewed and negative, patient tolerating the clindamycin well and doing a probiotic as well. He denies any systemic or localized signs of infection at this time, no new concerns. 04/08/20- no new concerns, having delayed healing, continues with lower extremity edema. 04/22/20- no new concerns, having delayed healing, continues with lower extremity edema. 05/13/2020- Telemedicine visit: The patient denies any fever, chills, nausea, vomiting, or diarrhea. Denies any increasing pain, redness, swelling, or purulent/malodorous drainage from affected area. He feels his wound is healed. - Physical Exam Vital Signs Temp Pulse Resp BP 96.1 F L 87 18 161/88 H 05/09/20 00:25 05/09/20 00:25 05/09/20 00:25 05/09/20 00:25 General: Alert, Cooperative, No apparent distress HEENT: Atraumatic, Normocephalic Skin: No rashes, Ulcer/ Wound - Left lower leg wound healed Psych/Mental Status: Normal Affect, Appropriate Assessment/Plan Active Problems Traumatic open wound of left lower leg with delayed healing (Chronic) Secondary to puncture wound Obesity (Chronic) MRSA (methicillin resistant Staphylococcus aureus) infection (Acute) Bilateral lower extremity edema (Chronic) Assessment: Traumatic open wound of left lower leg with delayed healing (Chronic) Secondary to puncture wound-- healed. Obesity (Chronic). MRSA (methicillin resistant Staphylococcus aureus) infection (Acute)-- resolved. Bilateral lower extremity edema (Chronic) Plan: The patient was seen via telemedicine visit today and updated on the plan of care. His left lower extremity ulcer is healed. He was instructed to pad and protect the former wound site for the next 1-2 weeks and follow-up with the [facility] on an as-needed basis. Office Visits / Consults: [id number] OV L3 Est - telemed visit
== END 2020-05-13 14:49 | disposition home or self-care (01) ==
LOC: WC 14:32
PROVIDERS: PCP Family Medicine; Visit Provider Nurse Practitioner Family
DX: Z09 Encounter for follow-up examination after completed treatment for conditions other than malignant neoplasm (principal); E66.9 Obesity, unspecified; Z86.14 Personal history of Methicillin resistant Staphylococcus aureus infection; R60.0 Localized edema

== ENCOUNTER 2021-02-08 00:39 | Emergency (ER) | payer OTHER, SELFPAY ==
[2021-02-08 00:39] VITALS: BP 153/83; PULSE 91; RESP 18; TEMP 36.9; O2SAT 97; BMI 48.5
--- NOTE | 2021-02-08 01:01 | CT_ITS ---
STUDY: CT ABDOMEN AND PELVIS WITH CONTRAST REASON FOR EXAM: Male, 20 years old. R sided abd pain, Mostly RLQ RADIATION DOSAGE (If Supplied By Facility): CTDIvol = ( 25.39 ) mGy, DLP = ( 1460.13 ) mGycm TECHNIQUE: Transaxial images were obtained from the dome of the diaphragm to the symphysis pubis without oral contrast. IV 100mL Isovue-370 was administered. Sagittal and coronal images were reconstructed. Individualized dose optimization techniques were used for this CT. COMPARISON: None. FINDINGS: Lung bases clear. Unremarkable liver, pancreas, adrenals, and bilateral kidneys. Enlarged spleen measuring 17.6 cm in the greatest dimension. No definite cholelithiasis. Haziness of the mesenteric fat in the mid abdomen containing multiple prominent lymph nodes, nonspecific finding which can be seen with mesenteric panniculitis. Normal appendix. Bowel loops nonobstructed. No free air or free fluid. No abdominal aortic aneurysm. No adenopathy. Sections through the pelvis demonstrate a normal sized prostate. Urinary bladder grossly unremarkable. Tiny fat-containing right inguinal hernia. No acute finding the regional skeleton. L2 hemangioma. CT/Abdomen/Pelvis W IV Cont ONLY IMPRESSION: Haziness of the mesenteric fat in the midabdomen containing prominent lymph nodes, nonspecific finding which can be seen with mesenteric panniculitis. Splenomegaly. Normal appendix. Electronically Signed: Dilshad Hutton MD at 3:23 EDT Tel , Service support ,
--- NOTE | 2021-02-08 01:10 | EDS_ITS ---
HPI History of Present Illness Chief Complaint: Abd Pain Informant: patient Narrative Narrative: Patient is a 20-year-old male with a past medical history of bipolar disorder who presents to the emergency department for right-sided abdominal pain. He states that this initially started around 1 week ago. He was seen by his family doctor who ordered basic lab work. The pain did get better until today became significantly worse. Describes as a 7 out of 10 currently. He has not been take anything for it. He has been nauseous and vomiting today. No change in bowel movements. No urinary symptoms. No fevers or chills. Denies any chest pain or shortness of breath. No previous abdominal surgeries. [facility] Medical History (Updated 02/08/21 @ 03:[address] Beau Yuen DO) Bipolar disorder Home Medications carbamazepine 200 mg PO QHS 02/26/20 [History Last Taken Unknown] clindamycin HCl 300 mg capsule 300 mg PO TID #30 cap 03/07/20 [Rx Last Taken Unknown] ondansetron 4 mg PO Q8H PRN 4 Days #10 tab 02/08/21 [Rx Last Taken Unknown] Allergy/AdvReac Type Severity Reaction Status Date / Time No Known Allergies Allergy Verified 02/08/21 00:43 Social History Smoking Status: Current every day smoker tobacco type: cigarettes ROS ROS ED Constitutional Constitutional ED: Denies chills or fever(s) Eyes Eyes: Denies change in vision ENT ENT ED: Denies epistaxis or rhinorrhea Cardiovascular Cardiovascular: Denies chest pain or palpitations Respiratory/Chest Respiratory/Chest: Denies cough, dyspnea or dyspnea on exertion Gastrointestinal Gastrointestinal: Reports abdominal pain, nausea and vomiting; Denies constipat ion, diarrhea or melena Genitourinary Genitourinary ED: Denies dysuria, hematuria or urinary frequency Musculoskeletal Musculoskeletal: Denies back pain or neck pain Integumentary Denies rash Neurologic Neurologic: Denies dizziness, headache(s) or weakness EXAM Physical Exam Const Vital Signs: 02/08/21 00:39 02/08/21 02:39 02/08/21 04:13 Temperature 98.4 F Temperature Source Oral Pulse Rate 91 76 Respiratory Rate 18 14 16 Blood Pressure 153/83 H Blood Pressure Mean 106 Pulse Ox 97 98 Oxygen Delivery Method Room Air Positive well nourished and well developed General Appearance ED: well developed and NAD HEENT Reports normocephalic, head/scalp atraumatic and moist mucous membranes Eyes PERRL and EOMs intact bilaterally Neck no lymphadenopathy and supple General: Negative for tenderness Chest Wall inspection of chest normal Resp normal respiratory effort and clear to auscultation bilaterally Auscultation: Negative for rales, rhonchi or wheezes Cardio regular rate, regular rhythm and no murmurs GI normal to inspection, nondistended, normoactive bowel sounds GI Narrative: Tenderness present in the right lower quadrant as well as right upper quadrant. Negative Rovsing sign. He does have positive psoas sign. No rebound or guarding present. Palpation: soft Back/Spine no CVA tenderness Extremity normal to inspection General Extremety ED: Negative for edema or tenderness General Extremity: Negative for edema Neuro oriented x3, CN's II-XII intact bilaterally and no sensory deficits noted Sensorium / Orientation: alert Motor Exam: strength 5/5 throughout Psych mental status grossly normal Skin no rashes or lesions noted MDM MDM MDM Narrative Medical decision making narrative: Patient presents the ED for right sided abdominal pain. Is mostly in the right lower quadrant but does go up to the upper abdomen as well. On arrival to the ED he is mildly hypertensive otherwise normal vital signs. He does have tenderness along the whole right side of the abdomen on examination without peritoneal signs. Basic lab work, CT scan of the abdomen/pelvis being obtained. He is given a dose of hydromorphone and Zofran for symptomatic treatment. Patient's lab work did not reveal a high white blood cell count. Is not anemic. No significant acute electrolyte disturbance. No liver enzyme elevation. His lipase is within normal limits. 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 Will recommend symptomatic treatment. He is resting comfortably and states his abdominal pain is much improved at this point. He is to follow-up with his PCP. Return precautions are reviewed with him. He understands and is agreeable this plan. Lab Data Labs: Laboratory Results - last 24 hr 02/08/21 02/08/21 01:18 01:18 WBC 9.8 RBC 4.88 Hgb 14.0 Hct 42.6 MCV 87.3 MCH 28.7 MCHC 32.9 RDW Std Deviation 41.0 RDW Coeff of Nehal 12.8 Plt Count 252 MPV 9.8 Immature Gran % (Auto) 0.300 Neut % (Auto) 61.4 Lymph % (Auto) 25.2 [place] % (Auto) 9.0 Eos % (Auto) 3.7 Baso % (Auto) 0.4 Absolute Neuts (auto) 6.0 Absolute Lymphs (auto) 2.47 Nucleated RBC % 0 Sodium 140 Potassium 3.8 Chloride 110 H Carbon Dioxide 26.0 Anion Gap 4 L BUN 9 Creatinine 0.63 L Estim Creat Clear Calc 221.68 Est GFR (MDRD) Af Amer 206 Est GFR (MDRD) Non-Af 170 BUN/Creatinine Ratio 14.3 Glucose 93 Calcium 8.1 L Total Bilirubin 0.30 AST 13 L ALT 39 Alkaline Phosphatase 81 Total Protein 6.5 Albumin 3.5 Globulin 3.0 Albumin/Globulin Ratio 1.2 Lipase 74 Radiography Diagnostic Testing: Radiology Impression Abdomen/Pelvis CT 02/08/21 01:01 IMPRESSION: Haziness of the mesenteric fat in the midabdomen containing prominent lymph nodes, nonspecific finding which can be seen with mesenteric panniculitis. Splenomegaly. Normal appendix. Electronically Signed: Dilshad Hutton MD at 3:23 EDT Tel , Service support , Discharge Plan Triage Chief Complaint: Abd Pain ED Provider: Beau Yuen Dx/Rx/DC Orders Clinical Impression: Mesenteric panniculitis Instructions: ED Adenitis, Mesenteric Prescriptions: New ondansetron 4 mg tablet,disintegrating 4 mg PO Q8H PRN (Reason: nausea and vomiting) 4 Days Qty: 10 RF: 0 No Action carbamazepine 200 MG tablet 200 mg PO QHS RF: 0 clindamycin HCl 300 mg capsule 300 mg PO TID Qty: 30 RF: 0 Primary Care Provider: Will Jaimes Referrals: Will Jaimes MD [Primary Care Provider] - 3-5 Days Disposition Disposition: Home, Self Care Discharge Date/Time: 02/08/21 04:24
[2021-02-08] MEDS: Ondansetron 4 MG/2 ML Vial IV (01:27)
[2021-02-08] MEDS: 0.9% Normal Saline 1,000 ML 1000 ML IV (01:27)
[2021-02-08] MEDS: HYDROmorphone 1 MG/ML Syringe 0.5 MG IV (01:28)
[2021-02-08 01:29] LABS: Absolute Lymphocyte Count 2.47 X10^3/uL (0.83-4.51); Basophil# 0.04 X10^3/uL; Basophil% 0.4 % (0-1); Eosinophil# 0.36 X10^3/uL; Eosinophils% 3.7 % (0-5); Hematocrit 42.6 % (40-54); Lymphocyte # 2.47 X10^3/ul (0.83-4.51); Lymphocyte % 25.2 % (19-41); Mean Corp Hgb Conc 32.9 g/dL (32-36); Mean Corpuscular Hgb 28.7 pg (27.0-32.0); Mean Corpuscular Volume 87.3 fL (80-94); Mean Platelet Vol. 9.8 fl (6.2-12.0); Monocyte# 0.88 X10^3/uL; NRBC Flagged by Analyzer 0 % (0-5); Neutrophil # 6.04 X10^3/uL (2.7-7.7); Neutrophil % 61.4 % (47-70); Platelet Count 252 K/mm3 (150-450); RBC Distribution Width CV 12.8 % (11.6-14.6); Red Blood Count 4.88 M/mm3 (4.6-6.2); White Blood Count 9.8 K/mm3 (4.4-11.0)
[2021-02-08 01:46] LABS: ALB/GLOB Ratio 1.2 RATIO (0.9-2.4); AST(SGOT) 13 U/L (15-37); Alanine Aminotransfer ALT/SGPT 39 U/L (16-61); Albumin, Serum 3.5 g/dL (3.2-5.0); Alkaline Phosphatase 81 U/L (45-117); Anion Gap 4 (5-15); BUN 9 mg/dL (7-18); BUN/Creat Ratio 14.3 RATIO (10-20); Calcium,Total 8.1 mg/dL (8.5-10.1); Chloride 110 mmol/L (98-107); Creatinine, Serum 0.63 mg/dL (0.70-1.30); EST Glomerular Filtration Rate 170 mL/min (>60); Est Glom Filt Rate - Afr Amer 206 mL/min (>60); Estimated Creatinine Clearance 221.68 ml/min; Glucose 93 mg/dL (74-106); Lipase 74 U/L (73-393); Potassium 3.8 mmol/L (3.5-5.1); Protein, Total 6.5 g/dL (6.4-8.2); Sodium Level 140 mmol/L (136-145)
[2021-02-08 02:39] VITALS: RESP 14
[2021-02-08 04:13] VITALS: PULSE 76; RESP 16; O2SAT 98
== END 2021-02-08 04:24 | disposition home or self-care (01) ==
PROVIDERS: Emergency Provider Emergency Medicine; PCP Family Medicine
DX: K65.4 Sclerosing mesenteritis (principal); F31.9 Bipolar disorder, unspecified; Z79.899 Other long term (current) drug therapy; F17.210 Nicotine dependence, cigarettes, uncomplicated
CPT/HCPCS: 74177; 80053; 83690; 85025; 96361; 96374; 96375; 99283; J7030; Q9967; A4216; J2405

== ENCOUNTER 2021-03-13 10:53 | Emergency (ER) | payer OTHER, SELFPAY ==
[2021-03-13 10:54] VITALS: BP 141/95; PULSE 86; RESP 18; TEMP 36.7; O2SAT 99; BMI 46.8
[2021-03-13] MEDS: Acetaminophen 325 MG Tablet 650 MG PO (11:37)
[2021-03-13] MEDS: Ibuprofen 600 MG Tablet PO (11:38)
--- NOTE | 2021-03-13 11:40 | RAD_ITS ---
EXAM: XR LEFT KNEE COMPLETE, 4 OR MORE VIEWS : 1999 CLINICAL INDICATION: Injury/Pain TECHNIQUE: Four or more views of the left knee. This report was created using [employer] report generation technology. COMPARISON: None. FINDINGS: BONES/JOINTS: Unremarkable. No acute fracture. No subluxation. Normal alignment. Preservation of the joint space. No sclerotic or destructive changes observed. SOFT TISSUES: Unremarkable. No soft tissue swelling or gas. No radiopaque foreign body. RAD/Knee 4 or More Views IMPRESSION: Negative left knee x-rays. at 1228 Reported and signed by: Michel Leone MD Electronically Signed: Michel Leone MD at 12:27 EDT Tel , Service support ,
--- NOTE | 2021-03-13 11:40 | RAD_ITS ---
EXAM: XR LEFT TIBIA AND FIBULA, 2 VIEWS : 1999 CLINICAL INDICATION: Injury/Pain TECHNIQUE: Frontal and lateral views of the left tibia and fibula. This report was created using [employer] technology. COMPARISON: None. FINDINGS: BONES/JOINTS: Unremarkable. No acute fracture. No subluxation. Normal alignment. Preservation of the joint space. No sclerotic or destructive changes observed. SOFT TISSUES: Unremarkable. No soft tissue swelling or gas. No radiopaque foreign body. RAD/Tibia & Fibula 2 Views IMPRESSION: Negative left tibia and fibula x-rays. at 1228 Reported and signed by: Michel Leone MD Electronically Signed: Michel Leone MD at 12:27 EDT Tel , Service support ,
--- NOTE | 2021-03-13 11:40 | RAD_ITS ---
EXAM: XR LEFT FEMUR, 2 VIEWS : 1999 CLINICAL INDICATION: Injury/Pain TECHNIQUE: Frontal and lateral views of the left femur. This report was created using [email or web address] report generation technology. COMPARISON: None. FINDINGS: BONES/JOINTS: Unremarkable. No acute fracture. No subluxation. Normal alignment. Preservation of the joint space. No sclerotic or destructive changes observed. SOFT TISSUES: Unremarkable. No soft tissue swelling or gas. No radiopaque foreign body. RAD/Femur Min 2 Views IMPRESSION: Negative left femur x-rays. at 1228 Reported and signed by: Michel Leone MD Electronically Signed: Michel Leone MD at 12:26 EDT Tel , Service support ,
--- NOTE | 2021-03-13 11:41 | ED.VIS.LOWEX ---
HPI History of Present Illness Chief Complaint: Lower Extremity Injury Informant: patient Narrative Narrative: Patient is a 20-year-old male presenting with left leg pain. Patient states he was drinking last night when he tripped over a rock and fell landing directly onto his left knee. He did notice too much pain last night when he woke up this morning he was having significant pain in his entire leg. It seems to be most centered around his knee. He is not been able to put significant weight on it since. He did not take anything for pain prior to arrival. Denies any prior injuries to the knee. No associated numbness or tingling. No other complaints at this time. He denies hitting his head or any other injuries. [facility] Medical History Bipolar disorder Home Medications carbamazepine 200 mg PO QHS 02/26/20 [History Last Taken Unknown] ibuprofen 600 mg PO Q6H PRN PRN #20 tab 03/13/21 [Rx Last Taken Unknown] Allergy/AdvReac Type Severity Reaction Status Date / Time No Known Allergies Allergy Verified 02/08/21 00:43 Social History Smoking Status: Current every day smoker tobacco type: cigarettes ROS ROS ED Constitutional Constitutional ED: Denies fever(s) Eyes Eyes: Denies change in vision or eye pain ENT ENT ED: Denies dental pain, mouth lesions or nasal trauma Cardiovascular Cardiovascular: Denies chest pain or syncope Respiratory/Chest Respiratory/Chest: Denies cough or dyspnea Gastrointestinal Gastrointestinal: Denies abdominal pain or nausea Genitourinary Genitourinary ED: Denies dysuria or hematuria Musculoskeletal Musculoskeletal: Reports other Details: left leg pain ; Denies arthralgias, back pain or myalgias Integumentary Denies Abrasions or wounds Neurologic Neurologic: Denies headache(s), paresthesias or weakness Psychiatric Psychiatric: Denies anxiety or depression Hematologic/Lymphatic Hematologic/Lymphatic: Denies easy bleeding or easy bruising EXAM Physical Exam Const Vital Signs: 03/13/21 10:54 Temperature 98.1 F Temperature Source Temporal Pulse Rate 86 Respiratory Rate 18 Blood Pressure 141/95 H Blood Pressure Mean 110 Pulse Ox 99 Oxygen Delivery Method Room Air Positive well nourished and well developed General Appearance ED: well developed HEENT Reports head/scalp atraumatic, hearing grossly normal bilaterally and TM's normal bilaterally normocephalic and atraumatic; Negative for Vargas's sign, raccoon eyes or scalp tenderness Nose: no nasal discharge Tympanic Membrane ED: Yes TM's normal bilaterally Tympanic Membrane: TM's normal bilaterally Mouth ED: Yes other Mouth: other Other Details: No Malocclusion Eyes PERRL Neck full ROM Thyroid: Negative for tender Chest Wall inspection of chest normal and palpation of chest normal Chest: Negative for crepitus Resp normal respiratory effort, no retractions and clear to auscultation bilaterally Cardio regular rate and regular rhythm Jugular Venous Distention: Negative for JVD Peripheral Pulses: pulses 2+ throughout GI non-tender and non-distended Palpation: soft; Negative for guarding or rebound tenderness present Back/Spine Cervical Spine: Negative for cervical spine tenderness Thoracic Spine / Upper Back: Negative for thoracic spinal tenderness Lumbar Spine / Lower Back: Negative for lumbar spinal tenderness Extremity normal to inspection and full ROM Extremity Narrative: pelvis stable, no deformity Patient has pretty diffuse pain of his left lower extremity however pain seems to be centered around the knee. Is able to lift the leg straight off the bed about 3 inches. Not able to evaluate laxity of the knee as patient would not tolerate. There is no obvious effusion on exam. Patella is in normal position. Achilles appears to be intact with soft calf muscles. Normal ankle. Neuro oriented x3, moves all extremities and no sensory deficits noted Sensorium / Orientation: alert Motor Exam: strength 5/5 throughout Psych mental status grossly normal Skin no wounds Trauma: Negative for abrasion MDM MDM MDM Narrative Medical decision making narrative: Patient evaluated for left knee pain. Exam is limited secondary to patient intolerance due to pain. No obvious deformity. No obvious patellar quadricep tendon rupture. No significant joint effusion. X-rays not show any acute process. Patient will be treated as a sprain. Will follow up with orthopedics as needed. Has crutches at home. Is given an Carlo wrap. Counseled on rice therapy. Is given Tylenol and ibuprofen in the ER. Radiography X-Ray: Read by ED Physician, Read by Radiologist and No Fracture Diagnostic Testing: Radiology Impression Femur X-Ray 03/13/21 11:40 IMPRESSION: Negative left femur x-rays. at 1228 Reported and signed by: Michel Leone MD Electronically Signed: Michel Leone MD at 12:26 EDT Tel , Service support , Knee X-Ray 03/13/21 11:40 IMPRESSION: Negative left knee x-rays. at 1228 Reported and signed by: Michel Leone MD Electronically Signed: Michel Leone MD at 12:27 EDT Tel , Service support , Tibia/Fibula X-Ray 03/13/21 11:40 IMPRESSION: Negative left tibia and fibula x-rays. at 1228 Reported and signed by: Michel Leone MD Electronically Signed: Michel Leone MD at 12:27 EDT Tel , Service support , Discharge Plan Triage Chief Complaint: Lower Extremity Injury ED Provider: Angie Post Dx/Rx/DC Orders Clinical Impression: Left knee sprain Instructions: ED Knee Sprain Prescriptions: New ibuprofen 600 mg tablet 600 mg PO Q6H PRN PRN (Reason: Pain Score 1-10/10) Qty: 20 RF: 0 No Action carbamazepine 200 MG tablet 200 mg PO QHS RF: 0 Primary Care Provider: Will Jaimes Referrals: Will Jaimes MD [Primary Care Provider] - Rommel Tate MD [STAFF PHYSICIAN] - (as needed ) Activity Restrictions/Additional Instructions: Use crutches as needed for comfort Disposition Disposition: Home, Self Care
== END 2021-03-13 13:28 | disposition home or self-care (01) ==
PROVIDERS: Emergency Provider Emergency Medicine; PCP Family Medicine
DX: S83.92XA Sprain of unspecified site of left knee, initial encounter (principal); F17.210 Nicotine dependence, cigarettes, uncomplicated; F31.9 Bipolar disorder, unspecified; Z79.899 Other long term (current) drug therapy; W01.0XXA Fall on same level from slipping, tripping and stumbling without subsequent striking against object, initial encounter
CPT/HCPCS: 73552; 73564; 73590; 99283

== ENCOUNTER 2023-11-11 18:36 | Emergency (ER) | payer BC, SELFPAY ==
[2023-11-11 18:36] VITALS: BP 147/86; PULSE 107; RESP 18; TEMP 36.4; O2SAT 96; BMI 49.3
--- NOTE | 2023-11-11 19:07 | EDS_ITS ---
<Statement entered by Krysta Escoto MD - 11/11/23 21:45> I have personally performed a face to face assessment of the patient and have reviewed the NIKKI Note. Patient present secondary to left thumb laceration. He was using a pocket knife with his left hand. He states somehow the knife started to close or come back on him and he suffered a flap laceration to his left thumb. He is left-hand dominant. Patient sitting upright in bed no acute distress. Left upper extremity examination reveals a flap like superficial laceration along the left thumb. Good range of motion noted. Good cap refill distally. He does have decreased sensation distally, however states this is from an old injury and not new today. Wound was cleansed and sealed with Dermabond. Bulky dressing applied. Wound care discussed. Return instructions given. HPI History of Present Illness Chief Complaint: Laceration Narrative Narrative: Patient presenting today with a laceration to his left thumb that he sustained this evening. He reports that he was opening a can of oil with a knife and cut his thumb. He is not on any blood thinners. Tetanus Immunization: Unknown [facility] Medical History Bipolar disorder Home Medications ibuprofen 600 mg tablet 600 mg PO Q6H PRN PRN Pain Score 1-10/10 #20 tabs 03/13/21 [Rx Last Taken Unknown] Allergy/AdvReac Type Severity Reaction Status Date / Time No Known Allergies Allergy Verified 11/11/23 18:38 Family History Grandmother Asthma Sister Hypertension Thyroid disorder Social History Smoking Status: Current every day smoker tobacco type: cigarettes, e-cigarettes and smokeless tobacco alcohol intake: current ROS ROS ED Constitutional Constitutional ED: Denies chills or fever(s) Cardiovascular Cardiovascular: Denies chest pain Respiratory/Chest Respiratory/Chest: Denies cough or dyspnea Musculoskeletal Musculoskeletal: Denies arthralgias or myalgias Integumentary Reports laceration Neurologic Neurologic: Denies paresthesias EXAM Physical Exam Const Vital Signs: 11/11/23 18:36 11/11/23 19:26 Temperature 97.6 F L 98.0 F Temperature Source Temporal Pulse Rate 107 H 92 Respiratory Rate 18 16 Blood Pressure 147/86 H 135/89 H Blood Pressure Mean 106 104 Pulse Ox 96 99 Oxygen Delivery Method Room Air Positive well nourished, well developed and no apparent distress General Appearance ED: well developed HEENT Reports normocephalic and head/scalp atraumatic Mouth ED: Yes moist mucous membranes normal Eyes PERRL and EOMs intact bilaterally Neck full ROM and supple Chest Wall inspection of chest normal Resp normal respiratory effort and clear to auscultation bilaterally Cardio regular rate and regular rhythm GI soft to palpation, non-tender, non-distended and no masses Back/Spine normal ROM and normal to inspection Extremity normal to inspection and full ROM Extremity Narrative: 1 cm linear superficial skin flap to the medial aspect of the left thumb. Full flexion extension at the left first MCP and IP joint. Left radial pulse 2+, good capillary refill, sensation intact. Neuro oriented x3, CN's II-XII intact bilaterally, moves all extremities, no focal motor deficits and no sensory deficits noted Sensorium / Orientation: awake and alert Psych mental status grossly normal and thought process normal PROC Procedures Lacerations Laceration: Length: 1 cm Depth: Skin Shape: Linear Prep: Chlorhexadine Laceration repair: Dermabond and Irrigated MDM MDM MDM Narrative Medical decision making narrative: Patient presenting today with a 1 cm superficial skin flap to his left thumb that he sustained this evening. Patient is unsure when he last had a tetanus shot but does not want to update this today. Laceration was cleaned with chlorhexidine. I did not feel that it required suture repair given it was more superficial and not gaping, it was closed with Dermabond and finger placed in a dressing. Wound care instructions discussed. Return instructions given and patient will be discharged home in stable condition. Discharge Plan Triage Chief Complaint: Laceration ED Midlevel Provider: Patricia Randhawa ED Provider: Krysta Escoto Dx/Rx/DC Orders Clinical Impression: Laceration of thumb Instructions: ED Laceration, Extremity: Skin Glue Prescriptions: No Action ibuprofen 600 mg tablet 600 mg PO Q6H PRN PRN (Reason: Pain Score 1-10/10) Qty: 20 0RF Primary Care Provider: Will Jaimes Referrals: Will Jaimes MD [Primary Care Provider] - As Needed Activity Restrictions/Additional Instructions: Please follow-up with your PCP and return for any signs of infection. Disposition Disposition: Home, Self Care
[2023-11-11 19:26] VITALS: BP 135/89; PULSE 92; RESP 16; TEMP 36.7; O2SAT 99
== END 2023-11-11 19:33 | disposition home or self-care (01) ==
LOC: ED 19:32
PROVIDERS: Emergency Provider Emergency Medicine; PCP Family Medicine; Visit Provider Emergency Medicine
DX: S61.012A Laceration without foreign body of left thumb without damage to nail, initial encounter (principal); W26.0XXA Contact with knife, initial encounter; F17.210 Nicotine dependence, cigarettes, uncomplicated; F17.290 Nicotine dependence, other tobacco product, uncomplicated; F17.220 Nicotine dependence, chewing tobacco, uncomplicated
CPT/HCPCS: 12001; 99283